=== PATIENT | male | born 1935 | race Caucasian/White ===

== ENCOUNTER → 2017-01-20 | Outpatient (CLI) | payer OTHER, BC ==
[~2017-01-20] MED LIST: AMLO-114 PO; ASCO10003 PO; CALCTAB5 PO; IBUP-1277 PO; METO25TA3 PO; MULT-506 PO
[2017-01-20 18:12] LABS: BLOOD UREA NITROGEN 14 mg/dl (7-18); BUN/CREATININE RATIO 16.2 (10-20); CALCIUM 8.8 mg/dl (8.5-10.1); CARBON DIOXIDE 26 mmol/L (21-32); CHLORIDE 106 mmol/L (98-107); CREATININE 0.89 mg/dl (0.60-1.40); GLUCOSE 90 mg/dl (70-99); POTASSIUM 4.2 mmol/L (3.5-5.1); SODIUM 138 mmol/L (136-145)
[2017-01-20 18:17] LABS: PROSTATE SPECIFIC ANTIGEN < 0.010 ng/ml (0.000-4.000)
== END | disposition home or self-care (01) ==
LOC: C.LABPVFM 09:24
PROVIDERS: ATTEND Family Medicine
DX: I10 Essential (primary) hypertension (principal); C61 Malignant neoplasm of prostate

== ENCOUNTER 2019-02-13 07:06 | Inpatient (IN) ==
--- NOTE | 2019-01-14 15:11 | PAT Medication Instructions ---
Medication Instructions Date of Service January 14, 2019 Home Medications amlodipine 10 mg tablet 10 mg PO QAM metoprolol succinate ER 25 mg tablet,extended release 24 hr 25 mg PO QAM multivitamin 1 tab PO QAM trazodone 50 mg PO HS PRN DO NOT take the morning of surgery multivitamin 1 tab PO QAM Take morning of surgery With a small sip of water, OTHERWISE NOTHING TO EAT OR DRINK AFTER MIDNIGHT: amlodipine 10 mg tablet 10 mg PO QAM metoprolol succinate ER 25 mg tablet,extended release 24 hr 25 mg PO QAM Take evening before surgery trazodone 50 mg PO HS PRN (if needed) Other Notes If you have any questions please call us at [phone] or [phone] or [phone] or [phone]
--- NOTE | 2019-01-15 08:49 | Anesthesiology Consultation ---
Date of Service January 15, 2019 Assessment & Plan Chart Review Chart Review: Acceptable Risk for Surgery and Patient seen in Pre Admission Testing Teaching & Discussion Pre-Anesthesia Teaching/Discussion Notes: Instructed NPO after midnight before surgery,except medications with 15 cc of water. Medication instructions provided according to the PAT guidelines. History Surgery Operation Date: 02/13/19 07:30 Proposed Procedures p Right Reversed Total Shoulder Arthroplasty - Ramon Almeida MD Height/Weight Height: 5 ft 9 in Weight: 90.7 kg Allergies Allergy/AdvReac Type Severity Reaction Status Date / Time aspirin Allergy Intermediate facial Verified 01/15/19 08:53 swelling hydrocodone AdvReac Intermediate hallucinati Verified 01/08/19 13:26 ons Medications Home Medications Medication Instructions Recorded Confirmed Last Taken amlodipine 10 mg tablet 10 mg PO QAM #90 tab 12/11/18 01/08/19 12/16/18 metoprolol succinate ER 25 mg 25 mg PO QAM #90 tab 12/11/18 01/08/19 12/16/18 tablet,extended release 24 hr multivitamin 1 tab PO QAM 12/16/18 01/08/19 12/16/18 trazodone 50 mg PO HS PRN 01/08/19 01/08/19 Unknown cholecalciferol (vitamin D3) 1,000 unit PO DAILY 01/15/19 01/15/19 Unknown [Vitamin D3] Past Medical History Medical History History of prostate cancer Insomnia Hypertension Osteoarthritis Exercise / Class Metabolic Activity II 4-5 Yardwork/Stairs/Walk up hill Past Family History Family History Father Myocardial infarction Past Surgical History Surgical History History of shoulder surgery RT/LEFT History of carpal tunnel surgery Bilateral History of bilateral knee replacement History of cataract surgery RT/LEFT History of colonoscopy History of herniorrhaphy INGUINAL History of toe surgery LEFT FOOT History of tonsillectomy History of tooth extraction Past Anesthesia History No Hx of Anesthesia Complications and No Family Hx of Anesthesia Complications History of PONV No Hx of PONV and No Hx of Motion Sickness Social History Smoking Status: Never smoker Do You Dip or Chew Tobacco: No Hx Alcohol Use: No Hx Substance Use: No substance use type: does not use Review of Systems Patient denies chest pain, shortness of breath, dyspnea on exertion, reflux, cough, wheezing, palpitations. Physical Exam Vital Signs VITALS BP 117/72 P 69 TEMP 98.2 SP02 95%RA RESP 20 PHYSICAL Mildly decreased cervical extension. Full TMJ range of motion. TMD 3 finger breaths Mallampati Score 2 Dentition: poor dentition, partial on upper dentures , crowns on sides/molars Lungs: clear throughout to auscultation Cardiac: regular rate and rhythm, no murmurs noted Spine: normal Carotid arteries: negative bruit Extremities: no edema Testing Laboratory Results 01/15/19 09:02 PT 10.5 Seconds (9.0-12.0) 01/15/19 09:02 INR 1.0 (0.9-1.1) 01/15/19 09:02 APTT 29.7 Seconds (21.0-31.0) 01/15/19 09:02 Hemoglobin A1c 5.6 % (4.5-5.6) 01/15/19 09:02 Urine Color Dark Yellow 01/15/19 09:02 Urine Appearance Clear (Clear) 01/15/19 09:02 Urine pH 5.0 (4.5-7.5) 01/15/19 09:02 Ur Specific [place] 1.025 (1.000-1.030) 01/15/19 09:02 Urine Protein Negative (Negative) 01/15/19 09:02 Urine Glucose (UA) Negative (Negative) 01/15/19 09:02 Urine Ketones Trace (Negative) H 01/15/19 09:02 Urine Nitrite Negative (Negative) 01/15/19 09:02 Ur Leukocyte Esterase Negative (Negative) 01/15/19 09:02 Blood Type O Negative 01/15/19 09:02 Antibody Screen NEGATIVE 01/15/19 09:02 01/01/19 SODIUM 140 POTASSIUM 4.1 CHLORIDE 108 CO2 25 BUN 18 CREATININE 0.79 GLUCOSE 92 Electrocardiogram Date: 01/15/19 SR with PAC's at 66bpm. iRBBB. Chest X-Ray Date: 01/15/19 Atherosclerosis of the aortic arch. Basilar irregular opacities best appreciated on lateral view likely correlate with lower lobe scarring evident on prior CT, right greater than left (report sent to PCP). Prominent nipple shadows noted. No other focal opacity is evident. No pleural effusion or pneumothorax. Degenerative changes of the thoracic spine.
--- NOTE | 2019-01-15 09:28 | XRay Report ---
XR chest Pre-admission PA/Lat CLINICAL HISTORY: 83 years-old Male presenting with preoperative assessment. TECHNIQUE: PA and lateral views of the chest were obtained. COMPARISON: Chest CT from 02/01/2016. FINDINGS: Atherosclerosis of the aortic arch. Cardiac silhouette normal in size. Basilar irregular opacities be st appreciated on lateral view likely correlate with lower lobe scarring evident on prior CT, right g reater than left. Prominent nipple shadows noted. No other focal opacity is evident. No pleural effus ion or pneumothorax. Degenerative changes of the thoracic spine. Upper abdomen normal. IMPRESSION: 1. Bibasilar scarring likely similar to prior chest CT from 2015. Electronically signed by: Hussain Brown M.D. 01/15/2019 9:26 AM
[2019-01-15 10:55] LABS: Appearance Urine Clear (Clear); Basophils # (auto) 0.03 K/uL (0-0.2); Basophils % (auto) 0.5 %; Bilirubin Urine Negative (Negative); Blood Urine Negative (Negative); Color Urine Dark Yellow; Eosinophils % (auto) 3.1 %; Glucose Urine UA Negative (Negative); Hematocrit (blood only) 47.3 % (42-52); Hemoglobin 16.2 g/dL (14.0-18.0); Immature Granulocytes # (auto) 0.01 K/uL (0.00-0.02); Immature Granulocytes % (auto) 0.2 %; Ketones Urine Trace (Negative); Leukocyte Esterase Urine Negative (Negative); Lymphocytes # (auto) 1.15 K/uL (1.2-3.4); Lymphocytes % (auto) 17.9 %; Mean Corpuscular Hemoglobin 32.5 pg (25-34); Mean Corpuscular Hgb Conc 34.2 g/dL (32-36); Mean Platelet Volume 10.3 fL (7.4-10.4); Monocytes # (auto) 0.93 K/uL (0.11-0.59); Monocytes % (auto) 14.5 %; Neutrophils % (auto) 63.8 %; Nitrite Urine Negative (Negative); Platelet Count 267 K/uL (130-400); Protein Urine Negative (Negative); RDW Coefficient of Variation 13.6 % (11.5-14.5); RDW Standard Deviation 46.6 fL (36.4-46.3); Red Blood Count 4.98 M/uL (4.7-6.1); Specific Gravity Urine 1.025 (1.000-1.030); Urobilinogen Urine Negative (Negative); White Blood Count 6.42 K/uL (4.8-10.8)
[2019-01-15 11:06] LABS: Partial Thromboplastin Ratio 1.1; Partial Thromboplastin Time 29.7 Seconds (21.0-31.0); Prothrombin Time 10.5 Seconds (9.0-12.0)
[2019-01-15 11:16] LABS: Estimated Average Glucose 114 mg/dl; Hemoglobin A1C 5.6 % (4.5-5.6)
--- NOTE | 2019-02-12 16:02 | History and Physical Report ---
DATE OF ADMISSION: 02/13/2019 CHIEF COMPLAINT: Chronic right shoulder pain and weakness. HISTORY OF PRESENT ILLNESS: This is an 83-year-old male patient of Dr. Almeida'zoraida complaining of chronic right shoulder pain and weakness. He has had a failed rotator cuff repair in the past. MRI has confirmed chronic rotator cuff tear and arthritis. The patient wished to proceed with a right reversed total shoulder arthroplasty. PAST MEDICAL HISTORY: Hypertension, osteoarthritis, kidney stones, prostate cancer, skin cancer. SOCIAL HISTORY: Nonsmoker, nondrinker. PAST SURGICAL HISTORY: Bilateral total knees, bilateral rotator cuff repairs, bilateral carpal tunnel releases. FAMILY HISTORY: Noncontributory. REVIEW OF SYSTEMS: Chronic right shoulder pain and weakness. Otherwise, denies any shortness of breath, chest pain, nausea, vomiting or any other joint complaints. MEDICATIONS: 1. Toprol 25 mg daily. 2. Amlodipine 1 mg daily. 3. Multivitamin daily. ALLERGIES: VICODIN AND ASPIRIN, VICODIN CAUSES HALLUCINATIONS, ASPIRIN IS FACE SWELLING. PHYSICAL EXAMINATION: GENERAL: Well-developed, well-nourished 83-year-old male, in no acute distress. He is alert and oriented x3 and pleasant. HEENT: Normocephalic, atraumatic. Extraocular motions are intact. Pupils are equal and reactive to light. HEART: Regular rate and rhythm, no murmurs. LUNGS: Clear. ABDOMEN: Soft, nontender, bowel sounds present. EXTREMITIES: Right shoulder active range of motion to 90 degrees, passively to 180 with crepitation and pain. He has 3/5 strength globally. NEUROLOGIC: Neurovascularly he is intact in his right upper extremity. DIAGNOSES: Right shoulder rotator cuff arthropathy, hypertension, osteoarthritis, history of kidney stones, history of prostate cancer and skin cancer. PLAN: The patient was advised of his diagnosis. Indications, risks, benefits, postop course have all been reviewed. The patient wished to proceed with a right reversed total shoulder arthroplasty. Necessary consent forms, preoperative testing and clearances will be obtained.
[~2019-02-13 07:06] MED LIST changes: +ACETAMINOPHEN 500 MG TAB PO SCH; -AMLO-114 PO; -ASCO10003 PO; -CALCTAB5 PO; +CEFAZOLIN 2000MG 2,000 MG/15 ML SYR IV SCH; +CeleBREX 200 MG CAP PO SCH; +FAMOTIDINE 20 MG TAB PO SCH; +GABAPENTIN 300 MG CAP PO SCH; -IBUP-1277 PO; +LR 15ML/HR IV SCH; -METO25TA3 PO; +METOCLOPRAMIDE HCL 10 MG TABLET PO SCH; -MULT-506 PO; +ROPIVACAINE 0.5% 5 MG/ML 30 ML VIAL ONE; +dexAMETHasone 4 MG TAB PO SCH
[2019-02-13] MEDS ORDERED: GLYCOPYRROLATE 0.2 MG/ML VIAL ONE (08:20)
[2019-02-13] MEDS ORDERED: LARYING-O-JET KIT (LTA) ONE (08:20)
[2019-02-13] MEDS ORDERED: ROCURONIUM BROMIDE 10 MG/ML 5 ML VIAL ONE (08:20)
[2019-02-13] MEDS ORDERED: PROPOFOL IV EMULSION 10 MG/ML 20 ML VIAL IV ONE (08:20)
[2019-02-13] MEDS ORDERED: DEXAMETHASONE SOD INJ 4 MG/ML VIAL ONE (08:20)
[2019-02-13] MEDS ORDERED: PHENYLEPHRINE HCL 10 MG/ML VIAL ONE (08:20)
[2019-02-13] MEDS ORDERED: MIDAZOLAM HCL 1 MG/ML 2ML VIAL ONE (08:20)
[2019-02-13] MEDS ORDERED: ONDANSETRON INJ 2 MG/ML 2 ML VIAL ONE (08:20)
[2019-02-13] MEDS ORDERED: PHENYLEPHRINE 100MCG/ML 5ML SYR ONE (08:20)
[2019-02-13] MEDS ORDERED: fentaNYL citrate 100 MCG/2 ML VIAL ONE (08:20)
[2019-02-13] MEDS ORDERED: NEOSTIGMINE METHYLSULFATE 5 MG/5 ML SYR ONE (08:20)
[2019-02-13] MEDS ORDERED: LIDOCAINE HCL 2% 2 ML VIAL/AMP(20MG/ML) INFIL ONE (08:20)
[2019-02-13] MEDS ORDERED: ePHEDrine sulfate 50 MG/ML SYR ONE (08:20)
[2019-02-13] MEDS ORDERED: fentaNYL citrate 100 MCG/2 ML VIAL IV PRN (09:13)
[2019-02-13] MEDS ORDERED: ATROPINE SULFATE 0.1 MG/ML 10ML SYR IV PRN (09:13)
[2019-02-13] MEDS ORDERED: ONDANSETRON INJ 2 MG/ML 2 ML VIAL IV PRN ×2 (09:13→14:37)
[2019-02-13] MEDS ORDERED: ePHEDrine sulfate 50 MG/ML AMP IV PRN (09:13)
--- NOTE | 2019-02-13 09:56 | History & Physical Bridge Note ---
Date of Service February 13, 2019 History & Physical Bridge Note I have examined the patient, reviewed the History & Physical and in the interval since the performance of the History & Physical I have noted the following changes of clinical significance: no changes noted
[2019-02-13] MEDS ORDERED: BACITRACIN INJ 50,000 UNIT VIAL IR ONE (11:48)
--- NOTE | 2019-02-13 13:05 | Post Operative Brief Note ---
Immediate Post Op Note v1 Date of Surgery February 13, 2019 Pre & Post Diagnosis Operation Date: 02/13/19 09:30 Pre-Op Diagnosis: Right Shoulder Rotator Cuff Arthropathy, biceps tendon dislocation into a subscapularis tendon tear Post-Op Diagnosis: Right Shoulder Rotator Cuff Arthropathy, biceps tendon dislocation into the subscapularis tendon tear with biceps tendinopathy degenerative glenoid labrum tearing degenerative arthritis glenohumeral joint rotator cuff tendinopathy marked with chronic rotator cuff tear and tendinopathy partial tearing of the rotator cuff Procedure Operation Date: 02/13/19 09:30 Actual Procedures p Right Reversed Total Shoulder Arthroplasty(Right), biceps tenodesis, rotator cuff debridement- Ramon Almeida MD Surgeon Ramon Almeida MD Assistant Professor Of English Ap CRUZ Estimated Blood Loss 175 Findings Consistent with Post-Op Diagnosis Specimens Humeral head Drains Hemovac Drain Anesthesia Type General Regional Complications none Disposition Accompanied Patient To Recovery: No Disposition: Recovery Room Overlapping Procedure I was immediately available: during the entire case.
--- NOTE | 2019-02-13 14:06 | Anesthesiology Progress Note ---
Date of Service February 13, 2019 Anesthesia Post Procedure Vital Signs Vital Signs: Temp Pulse Pulse Resp BP Pulse Ox 02/13/19 13:55 97.2 F L 77 18 102/68 95 02/13/19 13:45 71 18 98/71 L 95 02/13/19 13:35 74 18 96/60 L 95 02/13/19 13:25 80 18 136/76 95 02/13/19 13:19 97.2 F L 73 18 115/70 95 02/13/19 10:13 64 16 96 02/13/19 10:08 61 16 136/79 96 02/13/19 07:36 98.4 F 70 18 135/81 92 Transfer of Care Handoff Completed per policy Notes Mental Status: alert / awake / arousable and participated in evaluation Patient Amnestic to Procedure: Yes Nausea / Vomiting: adequately controlled Pain: adequately controlled Airway Patency, RR, SpO2: stable & adequate BP & HR: stable & adequate Hydration State: stable & adequate Anesthetic Complications: no major complications apparent and Pt Satisfied with anesthetic care
--- NOTE | 2019-02-13 14:09 | Operative Report ---
Post Operative Report Pre & Post Diagnosis Operation Date: 02/13/19 09:30 Pre-Op Diagnosis: Right Shoulder Rotator Cuff Arthropathy anterior biceps dislocation into a subscapularis tendon tear Post-Op Diagnosis: Right Shoulder Rotator Cuff Arthropathy anterior biceps dislocation into the subscapularis tendon tear glenohumeral osteoarthritis degenerative glenoid labral tear biceps tendinopathy tendinopathy of the rotator cuff including rotator cuff tear Procedure Operation Date: 02/13/19 09:30 Actual Procedures p Right Reversed Total Shoulder Arthroplasty(Right), biceps tenodesis, debridement rotator cuff- Ramon Almeida MD Surgeon Ramon Almeida MD Fire Dispatcher Ap CRUZ Estimated Blood Loss 175 Findings Consistent with Post-Op Diagnosis Specimens Humeral head Drains 2 Hemovac Anesthesia Type General Regional Complications none Disposition Accompanied Patient To Recovery: No Disposition: Recovery Room Indications 80-year-old male with chronic bilateral shoulder pain. He said years of shoulder pain weakness with inability to raise his arm overhead without pain and cannot lift any weight over chest level due to marked weakness. MRI demonstrates chronic rotator cuff tear chronic rotator cuff tendinopathy with dislocated biceps tendon and rotator cuff arthropathy proximal migration of the humerus. Description of Procedure The patient was taken to the operating room and anesthetized under regional block and general anesthetic. The patient was positioned on the operating table in a 30 beachchair position with a towel roll under the medial border of the right scapula. The arm was draped free to be able to manipulate the shoulder as needed. The right upper extremity was prepped and draped in usual sterile fashion. Exam demonstrated glenohumeral crepitation subacromial crepitation external rotation to 30 degrees forward elevation and passively to 150 abduction to 80. An anterior deltopectoral approach was performed. A longitudinal incision was made in the deltopectoral interval. The skin was incised sharply. Subcutaneous flaps were elevated off the fascia. The cephalic vein was dissected out and retracted lateral with the deltoid. The clavipectoral fascia was divided at the lateral margin of the conjoined tendon and extended up to the CA ligament. The following findings were noted there was thickened bursal scar tissue over the subscapularis tendon. There is a split in the subscapularis tendon with dislocation of the biceps tendon into the subscapularis. There is a chronic supraspinatus tendon tear with tendinopathy marked thickened scar tissue and tendinopathy with partial tearing of the infraspinatus. The biceps tendon was very thickened and had marked tendinopathy and was scarred into the subscapularis tendon it is dislocated position. The upper centimeter of the pectoralis was released for inferior exposure. the biceps tendon was tenodesed to the pectoralis tendon with #2 FiberWire. The proximal biceps was resected. The subscapularis tendon was taken down off the lesser tuberosity using a subperiosteal dissection. There are 2 layers of the subscapularis tendon which were preserved for repair at the end of the procedure. A #1 Vicryl traction suture was placed into the free end of the subscapularis tendon and capsule. The subscapular muscle fibers were split longitudinally at the level of the circumflex vessels. The circumflex vessels were identified and tied off with silk ties and divided laterally. A Kitner elevator was used to free up the inferior fibers of the subscapularis off of the capsule. The axillary nerve was identified with a tug test and protected with a blunt Mathew retractor between the nerve and the capsule. The subscapularis tendon was then taken down off of the lesser tuberosity subperiosteally and subperiosteal dissection was performed along the neck of the humerus as the arm is gradually actually rotated exposing the humeral head. Retractors were readjusted and the inferior osteophytes were all resected using an artist chisel. A Berkowitz elevator was used to assist in releasing the capsule of the neck of the humerus. The capsule was divided with Rosen scissors down to the glenoid released off the anterior glenoid and the rotator interval was released to meet the capsular release and a 360 release of the subscapularis was accomplished. A Fukuda retractor was placed into the joint retracting the humeral head posterior. Glenoid findings demonstrated grade 3 glenohumeral osteoarthritis with chronic degenerative labrum and a widened thickened biceps tendon at the superior labral attachment with chronic tendinopathy.. The labrum and biceps tendon was resected. an anterior-inferior and posterior inferior capsular release were performed with electrocautery and a Berkowitz elevator on bone with the axillary nerve protected inferiorly by the retractor. Attention was then taken to the humeral preparation. The cutting guide was placed into the humeral head. It was positioned at 20 of retroversion. Oscillating saw was used to resect the humeral head giving the cut above the level of the posterior rotator cuff insertion site. The humerus was then prepared for the stem. I used the ascend flex stem from [employer]. The sizing broaches were used followed by trial broaches up to a size 6B long which had the appropriate fit and fill. The appropriate sized cut protector was placed. The humerus was then retracted posterior to the glenoid. The glenoid was sized for a 29 baseplate. The guide for the baseplate was positioned in a 10 inferior tilt and the central drill hole was made. The reamer for the 29 aequalis baseplate was used. The central drill was widened for the peg. The 29 aequalis ANDRE-coated baseplate was impacted into position. The base plate was transfixed with superior and inferior locking screws and anterior and posterior compression screws with stable fixation. The fan reamer was used for the 36 millimeter glenoid sphere. After irrigation the 36 standard glenoid sphere was impacted onto the baseplate and the screw was tightened. Attention was taken back to the humerus. The cut protector was removed and the +0 high offset humeral tray trial was assembled to the trial stem rotated appropriately to get bony coverage and then screwed in position. A trial reduction was performed. A 9 mm trial insert demonstrated good stability and no shuck. The trials were removed. 3 drill holes are made into the harder bone in the bicipital groove area and 3 #5 FiberWire sutures were placed transosseously. The canal was irrigated with antibiotic solution with bacitracin. The final component was assembled. The final component was 9 mm polyethylene plus or high offset tray and a ascend flex 6B long stem. This was then impacted into the humerus with a tight press-fit. It was reduced to the glenoid sphere. Stability was verified. I did debride the partial tearing of the subscapularis tendon removed the tendinopathic supraspinatus tendon tissue closed the lateral aspect of rotator interval and subscapularis was repaired with the #5 FiberWire sutures using Eric-Stefan suture technique. Lateral row soft tissue repair was performed with #2 FiberWire [id number] sutures. The pectoralis was repaired with #2 FiberWire [id number] sutures reinforcing th e biceps tendon tenodesis. The arm was taken through a range of motion which demonstrated 130 degrees of flexion 80 degrees abduction and 50 degrees of external rotation without any tension on repair. The implant was stable through the range of motion tested. The wound was copiously irrigated. 2 Hemovac drains were placed. The deltopectoral interval was closed with [id number]-[id number] #1 Vicryl sutures. The subcutaneous tissues were closed with 2-0 Vicryl sutures. The skin was closed with julissa. Sterile dressings were applied and a shoulder immobilizer. Ap CRUZ my physician child care center assistant director assisted in the procedure to the entire procedure including patient positioning arm positioning prepping and draping soft tissue retraction instrument management suture management and performed the subcutaneous and skin closure and will participate in the postoperative care of the patient. I attest to the content of the Intraoperative Record and any orders documented therein. Any exceptions are noted below.
[2019-02-13] MEDS ORDERED: SODIUM CHLORIDE 0.9% 1000ML 1,000 ML IV SCH (14:37)
[2019-02-13] MEDS ORDERED: NALOXONE HCL 0.4 MG/1 ML VIAL/CARP IV PRN (14:37)
[2019-02-13] MEDS ORDERED: HYDROmorphone INJ 0.5 MG/0.5 ML SYR IV PRN (14:37)
[2019-02-13] MEDS ORDERED: MAGNESIUM HYDROXIDE SUSP 30 ML UDC PO PRN (14:37)
[2019-02-13] MEDS ORDERED: BISACODYL 10 MG SUPP PR PRN (14:37)
--- NOTE | 2019-02-13 14:37 | XRay Report ---
RIGHT SHOULDER 2 VIEWS CLINICAL HISTORY: Postoperative examination. FINDINGS: 2 views of the right shoulder are obtained. No prior studies are available for comparison a t the time of dictation. The skeletal structures are osteopenic. A right shoulder arthroplasty is in near anatomic alignment. No fracture is seen. Mild productive degenerative change is noted at the acr omioclavicular joint. There are expected postoperative changes overlying the right shoulder including skin clips, a surgical drain, subcutaneous gas, and soft tissues. The visualized right upper lobe deepika ng parenchyma appears clear. IMPRESSION: Expected postoperative findings status post right shoulder arthroplasty. No fracture is s een. Electronically signed by: Kendrick Baeza M.D. 02/13/2019 2:35 PM
[2019-02-13] MEDS: ACETAMINOPHEN 500 MG TAB PO SCH ×2 (15:05→21:11)
--- NOTE | 2019-02-13 17:34 | Consultation ---
Date of Consultation February 13, 2019 Assessment & Plan (1) Post-operative state: S/P right rotator cuff arthroplasty 02/13 Pain control, dvt prophylaxis per primary Monitor for acute blood loss - CBC am (2) HTN (hypertension): continue metoprolol, amlodipine Thank you for involving us in the care of this patient. Medicine will sign off at this time. Please let us know if we can help in the future Supervising Physician Co-Signing Physician Notes I supervised Jyoti Black NP on this patient's care. I discussed the plan of care with her with the plan being as written in her note except for any following changes/exceptions: None. History of Present Illness Mr. Wiggins is post right rotator cuff arthroplasty. He is doing well, no complaints Pmhx: HTN, prostate CA Social: lives with his , never smoker, no alcohol, retired Family: father of heart attack, mother had atherosclerosis Attending Physician: Ramon Almeida MD Allergies Allergy/AdvReac Type Severity Reaction Status Date / Time aspirin Allergy Intermediate facial Verified 02/13/19 07:28 swelling hydrocodone AdvReac Intermediate hallucinati Verified 02/13/19 07:28 ons Home Medications Home Medications Medication Instructions Recorded Confirmed Type amlodipine 10 mg tablet 10 mg PO QAM #90 tab 12/11/18 02/13/19 History metoprolol succinate ER 25 mg 25 mg PO QAM #90 tab 12/11/18 02/13/19 History tablet,extended release 24 hr multivitamin 1 tab PO QAM 12/16/18 02/13/19 History cholecalciferol (vitamin D3) 1,000 unit PO DAILY 01/15/19 02/13/19 History [Vitamin D3] hydroxyzine HCl 25 mg tablet 25 mg PO .HS PRN #30 tab 01/18/19 02/13/19 Rx Patient History Family History Father Myocardial infarction Social History Preferred Language: Japanese Communication Ability: Effective 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 Required: No Beliefs That Will Affect Care: None Current Living Situation: Spouse Other Information That Helps Us Care for You: No Feels Safe at Home: Yes Safety Concerns: Feels Safe At This Time Smoking Status: Never smoker Do You Dip or Chew Tobacco: No ; Second Hand Exposure: No ; Tobacco Cessation Education Requested by Patient: No Hx Alcohol Use: No Hx Substance Use: No Review of Systems Review of Systems: All systems reviewed & are unremarkable except as noted in HPI & below Physical Exam Physical Exam: General: no distress Eyes: normal inspection, PERLL Respiratory: chest non tender, clear to auscultation, normal breath sounds, no respiratory distress, no accessory muscle use Cardiac: regular rate and rhythm, no rub or gallop, no murmur, no edema, no jvd GI/: active bowel sounds, no abd pain or tenderness, soft, non distended Extremities: normal range of motion, normal strength, non tender Neuro:oriented x 3, moves all extremities Psych: alert, normal mood and affect Skin: normal color, dry, right fingers warm and pink Results & Data Vital Signs (Past 12 Hours) Vital Signs Temp Pulse Pulse Resp BP Pulse Ox 02/13/19 16:31 36.5 C 72 17 100/68 93 02/13/19 15:32 36.9 C 68 17 107/65 92 02/13/19 15:00 36.7 C 71 17 104/63 90 02/13/19 14:30 36.4 C L 63 19 101/61 94 02/13/19 14:05 36.2 C L 70 18 100/67 94 02/13/19 13:55 36.2 C L 77 18 102/68 95 02/13/19 13:45 71 18 98/71 L 95 02/13/19 13:35 74 18 96/60 L 95 02/13/19 13:25 80 18 136/76 95 02/13/19 13:19 36.2 C L 73 18 115/70 95 02/13/19 10:13 64 16 96 02/13/19 10:08 61 16 136/79 96 02/13/19 07:36 36.9 C 70 18 135/81 92 PG Care Time/CCT Total # of Minutes Spent Total Time Spent with Patient: Total time spent is greater than 50% in coordination of care (as documented) at patient's floor/unit and/or counseling patient:
[2019-02-13] MEDS ORDERED: COUGH DROP (SUGAR FREE) LOZ 24 LOZ/1 BOX BUCCAL PRN (18:50)
[2019-02-13] MEDS: CEFAZOLIN 2000MG 2,000 MG/15 ML SYR IV SCH (19:07)
[2019-02-13] MEDS: DOCUSATE SODIUM 100 MG CAP PO SCH (21:10)
[2019-02-13] MEDS: SENNA 8.6 MG TAB PO SCH (21:10)
[2019-02-14] MEDS: CEFAZOLIN 2000MG 2,000 MG/15 ML SYR IV SCH (02:22)
[2019-02-14] MEDS: OXYCODONE HCL IR 5 MG TAB (IMMEDIATE RELEASE) PO PRN ×4 (04:06→17:14)
[2019-02-14] MEDS: ACETAMINOPHEN 500 MG TAB PO SCH ×3 (05:51→22:08)
[2019-02-14 07:32] LABS: Hematocrit (blood only) 41.6 % (42-52); Hemoglobin 14.3 g/dL (14.0-18.0); Immature Granulocytes # (auto) 0.03 K/uL (0.00-0.02); Immature Granulocytes % (auto) 0.2 %; Lymphocytes # (auto) 1.09 K/uL (1.2-3.4); Lymphocytes % (auto) 8.2 %; Mean Corpuscular Hemoglobin 31.7 pg (25-34); Mean Corpuscular Hgb Conc 34.4 g/dL (32-36); Mean Corpuscular Volume 92.2 fL (80-100); Mean Platelet Volume 9.7 fL (7.4-10.4); Monocytes # (auto) 1.07 K/uL (0.11-0.59); Neutrophils # (auto) 11.13 K/uL (1.4-6.5); Neutrophils % (auto) 83.6 %; Platelet Count 216 K/uL (130-400); RDW Coefficient of Variation 13.6 % (11.5-14.5); RDW Standard Deviation 45.7 fL (36.4-46.3); Red Blood Count 4.51 M/uL (4.7-6.1); White Blood Count 13.32 K/uL (4.8-10.8)
[2019-02-14 08:07] LABS: BUN Creatinine Ratio 21.9 (10-20); Calcium 8.6 mg/dl (8.5-10.1); Creatinine Clr Calc Pharmacy 62.2 ml/min; Est GFR (African American) 80.3; Est GFR (Non-African American) 69.3; Potassium 4.5 mmol/L (3.5-5.1)
[2019-02-14] MEDS: METOPROLOL SUCC 25MG EXT REL TAB PO SCH (08:51)
[2019-02-14] MEDS: CHOLECALCIFEROL 1,000 UNITS TAB PO SCH (08:51)
[2019-02-14] MEDS: DOCUSATE SODIUM 100 MG CAP PO SCH ×2 (08:51→22:08)
[2019-02-14] MEDS: MULTIVITAMIN TAB PO SCH (08:52)
[2019-02-14] MEDS: AMLODIPINE BESYLATE 5 MG TAB PO SCH (08:52)
[2019-02-14] MEDS ORDERED: MULTIVITAMIN TAB PO SCH (09:00)
[2019-02-14] MEDS: SENNA 8.6 MG TAB PO SCH (22:08)
[2019-02-15] MEDS: OXYCODONE HCL IR 5 MG TAB (IMMEDIATE RELEASE) PO PRN ×2 (01:27→06:02)
[2019-02-15] MEDS: ACETAMINOPHEN 500 MG TAB PO SCH (06:02)
[2019-02-15 06:20] VITALS: BP 102/69; TEMP 98.8; O2SAT 90
[2019-02-15 07:12] LABS: Basophils # (auto) 0.01 K/uL (0-0.2); Basophils % (auto) 0.1 %; Eosinophils # (auto) 0.02 K/uL (0-0.5); Eosinophils % (auto) 0.2 %; Hematocrit (blood only) 39.9 % (42-52); Hemoglobin 13.4 g/dL (14.0-18.0); Immature Granulocytes # (auto) 0.05 K/uL (0.00-0.02); Immature Granulocytes % (auto) 0.4 %; Lymphocytes # (auto) 1.33 K/uL (1.2-3.4); Lymphocytes % (auto) 11.7 %; Mean Corpuscular Hemoglobin 31.5 pg (25-34); Mean Corpuscular Hgb Conc 33.6 g/dL (32-36); Mean Corpuscular Volume 93.9 fL (80-100); Mean Platelet Volume 9.8 fL (7.4-10.4); Monocytes # (auto) 1.28 K/uL (0.11-0.59); Monocytes % (auto) 11.3 %; Neutrophils # (auto) 8.65 K/uL (1.4-6.5); Neutrophils % (auto) 76.3 %; Platelet Count 180 K/uL (130-400); RDW Coefficient of Variation 14.1 % (11.5-14.5); RDW Standard Deviation 48.1 fL (36.4-46.3); Red Blood Count 4.25 M/uL (4.7-6.1); White Blood Count 11.34 K/uL (4.8-10.8)
[2019-02-15 07:48] LABS: Calcium 7.9 mg/dl (8.5-10.1); Creatinine Clr Calc Pharmacy 69.1 ml/min; Est GFR (African American) 91.2; Est GFR (Non-African American) 78.7
--- NOTE | 2019-02-15 08:13 | Orthopedic Progress Note ---
Date of Service February 15, 2019 Assessment & Plan (1) Rotator cuff arthropathy of right shoulder: POD #2, Right Reversed TSA, Biceps Tenodesis. HEP, No formal PT D/C planning- HOme today. Subjective POD #2 Doing well. Denies SOB, CP, N/V. Pain controlled well. Physical Exam Physical Exam: Right shoulder dressings c/d/i Sling in tact. Fingers mobile A&Ox3. Results & Data Vital Signs (Past 12 Hours) Vital Signs Temp Pulse Pulse Resp BP Pulse Ox 02/15/19 06:19 37.1 C 87 20 102/69 90 02/14/19 23:40 37.2 C 85 17 137/74 91
[2019-02-15] MEDS: MULTIVITAMIN TAB PO SCH (08:18)
[2019-02-15] MEDS: AMLODIPINE BESYLATE 5 MG TAB PO SCH (08:18)
[2019-02-15] MEDS: METOPROLOL SUCC 25MG EXT REL TAB PO SCH (08:18)
[2019-02-15] MEDS: DOCUSATE SODIUM 100 MG CAP PO SCH (08:18)
[2019-02-15] MEDS: CHOLECALCIFEROL 1,000 UNITS TAB PO SCH (08:18)
[2019-02-15 08:55] VITALS: PULSE 85
--- NOTE | 2019-02-27 09:01 | Discharge Summary ---
HISTORY OF PRESENT ILLNESS: This is an 83-year-old male patient of Dr. Almeida's complaining of chronic right shoulder pain and weakness. He failed conservative treatment including a rotator cuff repair in the past. MRI has confirmed a chronic rotator cuff arthropathy and tear and the patient wishes to proceed with a right reversed total shoulder arthroplasty. PAST MEDICAL HISTORY: Hypertension, osteoarthritis, kidney stones, prostate cancer and skin cancer. POSTOPERATIVE COURSE: The patient underwent a right reverse total shoulder arthroplasty, biceps tenodesis and rotator cuff debridement on 02/13/2019. He was followed closely with medical consultation, limited physical therapy and pain control. The patient did very well postoperatively and was discharged home on postoperative day number 2. PHYSICAL EXAMINATION: On discharge, right shoulder incision was clean, dry and intact. Paige are intact. Skin edges were approximated well. There was no redness or drainage. Fingers were mobile. Sling was intact. Neurologically and neurovascularly he was intact in his right upper extremity. DIAGNOSES: Status post right reverse total shoulder arthroplasty, biceps tenodesis, rotator cuff repair with a history of hypertension, osteoarthritis, kidney stones, prostate cancer and skin cancer. PLAN: The patient was discharged home with home exercises only. He will continue his preadmission medications with the addition of pain medications. The patient will follow up with Dr. Almeida as scheduled as an outpatient.
== END 2019-02-15 09:30 | disposition home or self-care (01) | DRG 483 ==
LOC: ASU 07:06 → 3E 13:25

== ENCOUNTER 2020-09-09 05:01 | Inpatient (IN) ==
--- NOTE | 2020-08-27 15:11 | PAT Medication Instructions ---
Medication Instructions Date of Service August 27, 2020 Home Medications Medication Instructions Recorded amlodipine 10 mg tablet 10 mg PO QAM #90 tab 09/17/19 lorazepam 0.5 mg tablet See Rx Instructions PO .COMPLEX 01/06/20 PRN #120 tab doxycycline hyclate 100 mg tablet 100 mg PO BID #28 tab 04/03/20 metoprolol succinate 25 mg 25 mg PO QAM #90 tab 08/06/20 tablet,extended release 24 hr eszopiclone 1 mg tablet See Rx Instructions .ROUTE 08/24/20 .COMPLEX #180 tab multivitamin 1 tab PO QAM cholecalciferol (vitamin D3) [Vitamin D3] 1,000 unit PO DAILY amlodipine 10 mg tablet 10 mg PO QAM lorazepam 0.5 mg tablet See Rx Instructions PO .COMPLEX PRN doxycycline hyclate 100 mg tablet 100 mg PO BID metoprolol succinate 25 mg tablet,extended release 24 hr 25 mg PO QAM eszopiclone 1 mg tablet See Rx Instructions .ROUTE .COMPLEX DO NOT take the morning of surgery multivitamin 1 tab PO QAM cholecalciferol (vitamin D3) [Vitamin D3] 1,000 unit PO DAILY doxycycline hyclate 100 mg tablet 100 mg PO BID Take morning of surgery With a small sip of water, OTHERWISE NOTHING TO EAT OR DRINK AFTER MIDNIGHT: amlodipine 10 mg tablet 10 mg PO QAM metoprolol succinate 25 mg tablet,extended release 24 hr 25 mg PO QAM Take evening before surgery lorazepam 0.5 mg tablet See Rx Instructions PO .COMPLEX PRN (if needed) doxycycline hyclate 100 mg tablet 100 mg PO BID eszopiclone 1 mg tablet See Rx Instructions .ROUTE .COMPLEX Other Notes If you have any questions please call us at [phone] or [phone] or [phone] or [phone]
--- NOTE | 2020-08-31 11:47 | Anesthesiology Consultation ---
Date of Service August 31, 2020 Assessment & Plan (1) Pre-op evaluation: COVID Status: As of 08/31 assessment, patient denies travel to endemic area, known exposure/sick contacts, or symptoms of COVID19. Patient instructed that they and their household members must follow strict social distancing guidelines, wear a mask in public and avoid travel/events/gatherings for 14 days prior to surgery. Preoperative COVID19 testing to be completed prior to surgery per surgeon's arrangements. Patient made aware to self-isolate as much as possible between COVID testing and surgery. He has been attending christianity in- person, only about 8 people but he reports no one wears a mask. He was in structed to NOT attend christianity on 09/06, as his COVID test is scheduled for 09/04. He reports he is fully vaccinated. Chart Review Chart Review: Acceptable Risk for Surgery and Patient seen in Pre Admission Testing Teaching & Discussion Instructed NPO after midnight before surgery, except medications with 15 cc of water. Medication instructions provided according to the PAT guidelines. History Surgery Operation Date: 09/09/20 12:55 Proposed Procedures p Left Total Shoulder Arthroplasty Reverse(Left) - Ramon Almeida MD Height/Weight Height: 5 ft 8.5 in Weight: 90.9 kg Allergies Allergy/AdvReac Type Severity Reaction Status Date / Time aspirin Allergy Intermediate facial Verified 08/28/20 09:05 swelling hydrocodone AdvReac Intermediate hallucinati Verified 08/28/20 09:05 ons Medications Home Medications Medication Instructions Recorded Confirmed Last Taken multivitamin 1 tab PO QAM 12/16/18 08/28/20 02/12/19 07:00 cholecalciferol (vitamin D3) 1,000 unit PO QAM 01/15/19 08/28/20 02/12/19 07:00 [Vitamin D3] amlodipine 10 mg tablet 10 mg PO QAM #90 tab 09/17/19 08/28/20 Unknown metoprolol succinate 25 mg 25 mg PO QAM #90 tab 08/06/20 08/28/20 Unknown tablet,extended release 24 hr diphenhydramine HCl 25 mg PO DAILY PRN 08/28/20 08/28/20 Unknown eszopiclone 1 mg PO HS PRN 08/28/20 08/28/20 Unknown Past Medical History Medical History History of prostate cancer dx 18 years ago; h/o radioactive seed implants Hypertension Insomnia Osteoarthritis Exercise / Class Metabolic Activity II 4-5 Yardwork/Stairs/Walk up hill (Denies CP or SOB with 1 FOS) Past Family History Family History Father Hearing loss Myocardial infarction Other No family history of adverse response to anesthesia No family history of bleeding disorder Denies family history of Ovarian cancer Prostate cancer Breast cancer Colorectal cancer Past Surgical History Surgical History History of bilateral knee replacement History of carpal tunnel surgery Bilateral History of cataract surgery RT/LEFT History of colonoscopy History of herniorrhaphy INGUINAL History of shoulder surgery RT/LEFT History of toe surgery LEFT FOOT History of tonsillectomy History of tooth extraction Status post reverse total arthroplasty of right shoulder Biceps tenodesis, debridement of rotator cuff- 02/13/[address] Almeida Past Anesthesia History No Hx of Anesthesia Complications and No Family Hx of Anesthesia Complications History of PONV No Hx of PONV and No Hx of Motion Sickness Social History Smoking Status: Never smoker Do You Dip or Chew Tobacco: No Hx Alcohol Use: No Hx Substance Use: No substance use type: does not use Review of Systems Pt denies any recent chest pain, shortness of breath, palpitations, cough, fever, URI, or uncontrolled acid reflux. Physical Exam Vital Signs BP: 109/72 P: 70bpm SPO2: 96% RA T: 98.1 F R: 18 ENMT Mouth: + dentures (upper partial) and + dental restorations (few crowns); no chipped teeth and no loose teeth Thyromental Distance: < 3.5 Finger Breadths (3) Mallampati Class: II Neck normal visual inspection and + limited neck extension Respiratory normal respiratory effort, lungs clear to auscultation Cardiovascular RRR, no murmur, no edema Vessels: no carotid bruit Testing Laboratory Results 08/31/20 11:50 PT 10.3 Seconds (9.0-12.0) 08/31/20 11:50 INR 1.0 (0.9-1.1) 08/31/20 11:50 APTT 28.4 Seconds (21.0-31.0) 08/31/20 11:50 Hemoglobin A1c 5.4 % (4.5-5.6) 08/31/20 11:50 Urine Color Dark Yellow 08/31/20 11:50 Urine Appearance Clear (Clear) 08/31/20 11:50 Urine pH 5.0 (4.5-7.5) 08/31/20 11:50 Ur Specific [place]yl[place] 1.026 (1.000-1.030) 08/31/20 11:50 Urine Protein Negative (Negative) 08/31/20 11:50 Urine Glucose (UA) Negative (Negative) 08/31/20 11:50 Urine Ketones Trace (Negative) H 08/31/20 11:50 Urine Nitrite Negative (Negative) 08/31/20 11:50 Ur Leukocyte Esterase Negative (Negative) 08/31/20 11:50 Blood Type O Negative 08/31/20 11:50 Antibody Screen NEGATIVE 08/31/20 11:50 07/22/20 SODIUM: 144 POTASSIUM: 4.1 CHLORIDE: 112 CO2: 26 BUN: 17 CREATININE: 0.92 GLUCOSE: 98 Electrocardiogram Date: 08/31/20 Findings: + NSR @ (65bpm) Chest X-Ray Date: 08/31/20 Mild basilar atelectatic changes. No acute findings.
--- NOTE | 2020-08-31 12:52 | XRay Report ---
XR chest Pre-admission PA/Lat CLINICAL HISTORY: Preoperative chest COMPARISON STUDY: 01/15/2019 FINDINGS: The heart is normal in size. There is aortic tortuosity. There are mild basilar atelectatic changes. There is no failure. There is no lobar consolidation. There are postsurgical changes of a r everse total right shoulder arthroplasty.[ IMPRESSION: 1. Mild basilar atelectatic changes. No acute findings. ACT 112: Negative or not required by law. Electronically signed by: River Rubalcava M.D. 08/31/2020 12:50 PM
[2020-08-31 13:00] LABS: Basophils # (auto) 0.04 K/uL (0-0.2); Basophils % (auto) 0.6 %; Eosinophils # (auto) 0.21 K/uL (0-0.5); Eosinophils % (auto) 3.3 %; Hematocrit (blood only) 48.4 % (42-52); Hemoglobin 16.4 g/dL (14.0-18.0); Immature Granulocytes # (auto) 0.01 K/uL (0.00-0.02); Immature Granulocytes % (auto) 0.2 %; Lymphocytes # (auto) 1.59 K/uL (1.2-3.4); Lymphocytes % (auto) 25.1 %; Mean Corpuscular Hemoglobin 31.9 pg (25-34); Mean Corpuscular Hgb Conc 33.9 g/dL (32-36); Mean Corpuscular Volume 94.2 fL (80-100); Mean Platelet Volume 10.1 fL (7.4-10.4); Monocytes # (auto) 0.89 K/uL (0.11-0.59); Neutrophils % (auto) 56.8 %; Platelet Count 245 K/uL (130-400); RDW Coefficient of Variation 13.4 % (11.5-14.5); RDW Standard Deviation 46.3 fL (36.4-46.3); Red Blood Count 5.14 M/uL (4.7-6.1); White Blood Count 6.34 K/uL (4.8-10.8)
[2020-08-31 13:01] LABS: Appearance Urine Clear (Clear); Bilirubin Urine Negative (Negative); Blood Urine Negative (Negative); Color Urine Dark Yellow; Glucose Urine UA Negative (Negative); Ketones Urine Trace (Negative); Leukocyte Esterase Urine Negative (Negative); Nitrite Urine Negative (Negative); Protein Urine Negative (Negative); Specific Gravity Urine 1.026 (1.000-1.030); Urobilinogen Urine Negative (Negative)
[2020-08-31 13:14] LABS: Estimated Average Glucose 108 mg/dl; Hemoglobin A1C 5.4 % (4.5-5.6); Partial Thromboplastin Ratio 1.1; Partial Thromboplastin Time 28.4 Seconds (21.0-31.0); Prothrombin Time 10.3 Seconds (9.0-12.0)
--- NOTE | 2020-08-31 16:18 | Electrocardiogram Report ---
Test Reason : Blood Pressure : / mmHG Vent. Rate : 065 BPM Atrial Rate : 065 BPM P-R Int : 196 ms QRS Dur : 110 ms QT Int : 434 ms P-R-T Axes : 061 048 052 degrees QTc Int : 451 ms Normal sinus rhythm Normal ECG When compared with ECG of 15-JAN-2019 09:07, Premature atrial complexes are no longer Present Confirmed by Armond Garcia ([id number]) on 08/31/2020 4:18:20 PM Referred By: Ramon Almeida Confirmed By:Ilia Garcia
--- NOTE | 2020-09-06 21:14 | History & Physical Report ---
Date of Service September 06, 2020 Assessment & Plan (1) Rotator cuff arthropathy of left shoulder: Treatment options discussed with patient. He has endstage arthritis left shoulder with a massive retracted rotator cuff tear. He has failed conservative measures. Risks, benefits and alternatives to surgery including but not limited to infection, DVT, pain, stiffness, need for revision surgery, damage to blood vessels, damage to nerves, PE, , were discussed with the patient and they wish to proceed. Plan for left reverse total shoulder arthroplasty at [facility] on 09/09/[address] Almeida. All questions answered. He will follow up post operatively. (2) Primary osteoarthritis, left shoulder: History of Present Illness Chief Complaint: Left shoulder pain Primary Care Provider: Leidy Castro MD 85 year old male with PMHx significant for HTN and prostate Ca who presents with ongoing left shoulder pain. He has failed s\conservative measures including cortisone injections. Pain is interfering with his ability to carry out daily activities. He would like to proceed with left shoulder replacement. Patient denies headaches, sweats, fevers, chills, double vision, blurred vision, cough, sore throat, dysphagia, chest pain, sob, wheezing, n/v/d/c, numbness, tingling, fatigue, urinary symptoms, mood disorders. ROS positive for left shoulder pain and stiffness. Allergies Allergy/AdvReac Type Severity Reaction Status Date / Time aspirin Allergy Intermediate facial Verified 09/01/20 14:01 swelling hydrocodone AdvReac Intermediate hallucinati Verified 09/01/20 14:01 ons Home Medications Medication Instructions Recorded Confirmed Type multivitamin 1 tab PO QAM 12/16/18 09/01/20 History cholecalciferol (vitamin D3) 1,000 unit PO QAM 01/15/19 09/01/20 History [Vitamin D3] amlodipine 10 mg tablet 10 mg PO QAM #90 tab 09/17/19 09/01/20 Rx metoprolol succinate 25 mg 25 mg PO QAM #90 tab 08/06/20 09/01/20 Rx tablet,extended release 24 hr diphenhydramine HCl 25 mg PO DAILY PRN 08/28/20 09/01/20 History eszopiclone 1 mg PO HS PRN 08/28/20 09/01/20 History Past Med/Surg History Medical History History of prostate cancer Hypertension Insomnia Osteoarthritis Surgical History History of bilateral knee replacement History of carpal tunnel surgery History of cataract surgery History of colonoscopy History of herniorrhaphy History of shoulder surgery History of toe surgery History of tonsillectomy History of tooth extraction Status post reverse total arthroplasty of right shoulder Family History Father Hearing loss Myocardial infarction Other No family history of adverse response to anesthesia No family history of bleeding disorder Denies family history of Ovarian cancer Prostate cancer Breast cancer Colorectal cancer Social History (Updated 09/01/20 @ 14:07 by Heidy Anderson LPN) Smoking Status: Never smoker Second Hand Exposure: Yes (as a child); Do You Dip or Chew Tobacco: No; Hx Alcohol Use: No Hx Substance Use: No Preferred Language: Ukrainian Communication Ability: Effective Visual Impairment: No Limitations Hearing Ability: Normal Windows Administrator Required: No Beliefs That Will Affect Care: None marital status: Current Living Situation: Spouse current occupational status: retired Feels Safe at Home: Yes Childhood Exposure to Second-Hand Smoke: Yes caffeine: Yes Dental Care, Regularly: Yes Physical Activity Frequency: Daily Seatbelt Use: always Sunscreen Use: No Assistive Devices: Cane and Denture - Upper Review of Systems All systems reviewed & are unremarkable except as noted in HPI & below Physical Exam Constitutional: well developed and well nourished; no acute distress Eyes: PERRL, conjunctivae normal, anicteric sclerae ENMT: external ear and nose normal, oropharynx normal Neck: trachea midline, no thyromegaly Respiratory: normal respiratory effort, lungs clear to auscultation Cardiovascular: RRR, no murmur, no edema Musculoskeletal: Left shoulder: Tenderness anterolateral acromion. Positive impingement signs. Active and passive ROM painful. Crepitus with ROM. FF to 120 degrees, abduction to 90 degrees. ER to 60 degrees. Strength 4-/5 ER, 5/5 IR, 3+/5 abduction. Skin: no rashes, warm and dry Neurologic: patellar DTR's 2+ bilat, sensation intact Psychiatric: A+Ox3, euthymic affect Results & Data ([facility]) Laboratory Results Lab Results 08/31/20 08/31/20 08/31/20 Range/Units 11:50 11:50 11:50 WBC 6.34 (4.8-10.8) K/uL RBC 5.14 (4.7-6.1) M/uL Hgb 16.4 (14.0-18.0) g/dL Hct 48.4 (42-52) % MCV 94.2 (80-100) fL MCH 31.9 (25-34) pg MCHC 33.9 (32-36) g/dL RDW Std Deviation 46.3 (36.4-46.3) fL RDW Coeff of Jerson 13.4 (11.5-14.5) % Plt Count 245 (130-400) K/uL MPV 10.1 (7.4-10.4) fL Immature Gran % (Auto) 0.2 % Neut % (Auto) 56.8 % Lymph % (Auto) 25.1 % Marin % (Auto) 14.0 % Eos % (Auto) 3.3 % Baso % (Auto) 0.6 % Neut # (Auto) 3.60 (1.4-6.5) K/uL Lymph # (Auto) 1.59 (1.2-3.4) K/uL Marin # (Auto) 0.89 H (0.11-0.59) K/uL Eos # (Auto) 0.21 (0-0.5) K/uL Baso # (Auto) 0.04 (0-0.2) K/uL Immature Gran # (Auto) 0.01 (0.00-0.02) K/uL PT 10.3 (9.0-12.0) Seconds INR 1.0 (0.9-1.1) APTT 28.4 (21.0-31.0) Seconds PTT Ratio 1.1 Estimat Average Glucose mg/dl Hemoglobin A1c (4.5-5.6) % Urine Color Urine Appearance (Clear) Urine pH (4.5-7.5) Ur Specific [place] (1.000-1.030) Urine Protein (Negative) Urine Glucose (UA) (Negative) Urine Ketones (Negative) Urine Blood (Negative) Urine Nitrite (Negative) Urine Bilirubin (Negative) Urine Urobilinogen (Negative) Ur Leukocyte Esterase (Negative) Blood Type O Negative Antibody Screen NEGATIVE 08/31/20 08/31/20 Range/Units 11:50 11:50 WBC (4.8-10.8) K/uL RBC (4.7-6.1) M/uL Hgb (14.0-18.0) g/dL Hct (42-52) % MCV (80-100) fL MCH (25-34) pg MCHC (32-36) g/dL RDW Std Deviation (36.4-46.3) fL RDW Coeff of Jerson (11.5-14.5) % Plt Count (130-400) K/uL MPV (7.4-10.4) fL Immature Gran % (Auto) % Neut % (Auto) % Lymph % (Auto) % [place] % (Auto) % Eos % (Auto) % Baso % (Auto) % Neut # (Auto) (1.4-6.5) K/uL Lymph # (Auto) (1.2-3.4) K/uL Marin # (Auto) (0.11-0.59) K/uL Eos # (Auto) (0-0.5) K/uL Baso # (Auto) (0-0.2) K/uL Immature Gran # (Auto) (0.00-0.02) K/uL PT (9.0-12.0) Seconds INR (0.9-1.1) APTT (21.0-31.0) Seconds PTT Ratio Estimat Average Glucose 108 mg/dl Hemoglobin A1c 5.4 (4.5-5.6) % Urine Color Dark Yellow Urine Appearance Clear (Clear) Urine pH 5.0 (4.5-7.5) Ur Specific [place] 1.026 (1.000-1.030) Urine Protein Negative (Negative) Urine Glucose (UA) Negative (Negative) Urine Ketones Trace H (Negative) Urine Blood Negative (Negative) Urine Nitrite Negative (Negative) Urine Bilirubin Negative (Negative) Urine Urobilinogen Negative (Negative) Ur Leukocyte Esterase Negative (Negative) Blood Type Antibody Screen Diagnostic Findings Left shoulder: Four-view x-rays left shoulder demonstrate grade 4 glenohumeral osteoarthritis on axillary view, subchondral cysts in the area of the inferior glenoid. There is an inferior humeral osteophyte. There is some proximal migration of the numerus consistent with rotator cuff insufficiency. There is moderate AC joint osteoarthritis. Completely bone on bone on axillary view with central wear on the glenohumeral joint.
[2020-09-09] MEDS ORDERED: ACETAMINOPHEN 500 MG TAB PO SCH (06:00)
[2020-09-09] MEDS ORDERED: CeleBREX 200 MG CAP PO SCH (06:00)
[2020-09-09] MEDS ORDERED: METOCLOPRAMIDE HCL 10 MG TABLET PO SCH (06:00)
[2020-09-09] MEDS ORDERED: LR 15ML/HR IV SCH (06:00)
[2020-09-09] MEDS ORDERED: dexAMETHasone 4 MG TAB PO SCH (06:00)
[2020-09-09] MEDS ORDERED: FAMOTIDINE 20 MG TAB PO SCH (06:00)
[2020-09-09] MEDS ORDERED: ceFAZolin 2000MG 2,000 MG/15 ML SYR IV SCH (06:00)
[2020-09-09] MEDS ORDERED: GABAPENTIN 300 MG CAP PO SCH (06:00)
[2020-09-09] MEDS ORDERED: BUPIVACAINE 0.5 % 5 MG/1 ML PF 10ML VIAL ONE (06:27)
[2020-09-09] MEDS ORDERED: PROPOFOL IV EMULSION 10 MG/ML 20 ML VIAL IV ONE (06:41)
[2020-09-09] MEDS ORDERED: LIDOCAINE HCL 2% 2 ML VIAL/AMP(20MG/ML) INFIL ONE (06:41)
[2020-09-09] MEDS ORDERED: fentaNYL citrate 100 MCG/2 ML VIAL ONE (06:42)
[2020-09-09] MEDS ORDERED: MIDAZOLAM HCL 1 MG/ML 2ML VIAL ONE ×2 (06:42)
[2020-09-09] MEDS ORDERED: BACITRACIN INJ 50,000 UNIT VIAL ONE (06:51)
[2020-09-09] MEDS ORDERED: ATROPINE SULFATE 0.1 MG/ML 10ML SYR IV PRN (06:59)
[2020-09-09] MEDS ORDERED: fentaNYL citrate 100 MCG/2 ML VIAL IV PRN (06:59)
[2020-09-09] MEDS ORDERED: ePHEDrine sulfate 50 MG/ML AMP IV PRN (06:59)
[2020-09-09] MEDS ORDERED: ONDANSETRON INJ 2 MG/ML 2 ML VIAL IV PRN ×2 (06:59→11:35)
--- NOTE | 2020-09-09 07:10 | History & Physical Bridge Note ---
Date of Service September 09, 2020 History & Physical Bridge Note I have examined the patient, reviewed the History & Physical and in the interval since the performance of the History & Physical I have noted the following changes of clinical significance: no changes noted
[2020-09-09] MEDS ORDERED: GLYCOPYRROLATE 0.2 MG/ML VIAL ONE (08:44)
[2020-09-09] MEDS ORDERED: NEOSTIGMINE METHYLSULFATE 5 MG/5 ML SYR ONE (08:44)
[2020-09-09] MEDS ORDERED: ONDANSETRON INJ 2 MG/ML 2 ML VIAL ONE (08:44)
[2020-09-09] MEDS ORDERED: ROCURONIUM BROMIDE 10 MG/ML 5 ML VIAL IV ONE (08:44)
--- NOTE | 2020-09-09 10:17 | Post Operative Brief Note ---
Immediate Post Op Note v1 Date of Surgery September 09, 2020 Pre & Post Diagnosis Operation Date: 09/09/20 07:00 Pre-Op Diagnosis: Osteoarthritis, rotator cuff arthropathy left Shoulder Post-Op Diagnosis: Osteoarthritis, rotator cuff arthropathy left Shoulder I identified the patient and participated in the time-out.: Yes Procedure Operation Date: 09/09/20 07:00 Actual Procedures p Left Total Shoulder Arthroplasty Reverse(Left) - Ramon Almeida MD Surgeon Ramon Almeida MD Marine Structural Designer Karlos CRUZ Estimated Blood Loss 125 Findings Consistent with Post-Op Diagnosis Specimens Humeral head Drains Hemovac Drain Anesthesia Type General Regional Complications none Disposition Accompanied Patient To Recovery: No Disposition: Recovery Room Overlapping Procedure I was immediately available: during the entire case.
[2020-09-09] MEDS ORDERED: ESMOLOL HCL INJ 10 MG/ML 10ML VIAL IV ONE (10:25)
--- NOTE | 2020-09-09 10:34 | Operative Report ---
Post Operative Report Pre & Post Diagnosis Operation Date: 09/09/20 07:00 Pre-Op Diagnosis: Osteoarthritis rotator cuff arthropathy left Shoulder Post-Op Diagnosis: Osteoarthritis rotator cuff arthropathy left Shoulder I identified the patient and participated in the time-out.: Yes Procedure Operation Date: 09/09/20 07:00 Actual Procedures Left reverse total Shoulder Arthroplasty , biceps tenodesis (Left) - Ramon Almeida MD Surgeon Ramon Almeida MD Label Folder Karlos CRUZ Estimated Blood Loss 125 Findings Consistent with Post-Op Diagnosis Specimens Humeral head cut Drains Two Hemovac Anesthesia Type General Regional Complications none Disposition Accompanied Patient To Recovery: No Disposition: Recovery Room Indications 85-year-old male with chronic progressive shoulder pain left shoulder. Patient had rotator cuff repair performed via open procedure years ago and gradual rotator cuff tendinopathy with proximal migration humerus and advanced glenohumeral DJD with shoulder weakness and dysfunction. Patient had successful reverse shoulder placement right shoulder. Description of Procedure The patient was taken to the operating room and anesthetized under regional block and general anesthetic. The patient was positioned on the operating table in a 30 beachchair position with a towel roll under the medial border of the left scapula. The arm was draped free to be able to manipulate the shoulder as needed. The left upper extremity was prepped and draped in usual sterile fashi on. Exam demonstrated 120 degrees of forward flexion, 70 degrees abduction, 30 degrees external rotation. [id number] crepitation.. An anterior deltopectoral approach was performed. A longitudinal incision was made in the deltopectoral interval. The skin was incised sharply. Subcutaneous flaps were elevated off the fascia. The cephalic vein was dissected out and retracted lateral with the deltoid. The clavipectoral fascia was divided at the lateral margin of the conjoined tendon and extended up to the CA ligament. The following findings were noted: The subscapularis tendon was intact. There was thin scarred superior rotator cuff tissue. Biceps tendon was scarred down in the bicipital groove area.. The upper centimeter of the pectoralis was released for inferior exposure. The biceps tendon findings demonstrated chronic biceps tendinopathy which had ruptured proximally or had previous procedure proximally. There was chronic thickened tenosynovitis around the biceps. This scarred tenosynovial tissue was resected. the biceps tendon was tenodesed to the pectoralis tendon with #2 FiberWire. The proximal biceps was resected. The subscapularis tendon was taken down off the lesser tuberosity using a subperiosteal dissection. A #1 Vicryl traction suture was placed into the free end of the subscapularis tendon and capsule. The subscapular muscle fibers were split longitudinally at the level of the circumflex vessels. The circumflex vessels were identified and tied off with silk ties and divided laterally. A Kitner elevator was used to free up the inferior fibers of the subscapularis off of the capsule. The axillary nerve was identified with a tug test and protected with a blunt Mathew retractor between the nerve and the capsule. The subscapularis tendon was then taken down off of the lesser tuberosity subperiosteally and subperiosteal dissection was performed along the neck of the humerus as the arm is gradually externally rotated exposing the humeral head. The humeral head findings demonstrated grade 4 DJD large peripheral osteophytes with a large humeral head.. retractors were readjusted and the inferior osteophytes were all resected using an artist chisel. A Berkowitz elevator was used to assist in releasing the capsule of the neck of the humerus. The capsule was divided with Rosen scissors down to the glenoid released off the anterior glenoid and the rotator interval was released to meet the capsular release and a 360 release of the subscapularis was accomplished. A Fukuda retractor was placed into the joint retracting the humeral head posterior. Glenoid findings demonstrated eburnated bone on the glenoid with posterior superior wear pattern 75% of the glenoid was exposed eburnated bone.. The labrum and biceps tendon was resected. an ant erior-inferior and posterior inferior capsular release were performed with electrocautery and a Berkowitz elevator on bone with the axillary nerve protected inferiorly by the retractor. Attention was then taken to the humeral preparation. The cutting guide was placed into the humeral head. It was positioned at 20 of retroversion. Oscillating saw was used to resect the humeral head giving the cut above the level of the posterior rotator cuff insertion site. The humerus was then prepared for the stem. I used the ascend flex stem from [employer]. The sizing broaches were used followed by trial br oaches up to a size 6B which had the appropriate fit and fill. The appropriate sized cut protector was placed. The humerus was then retracted posterior to the glenoid. The glenoid was sized for a 42 glenoid sphere. The guide for the 29 baseplate was positioned in a 10 inferior tilt and the central drill hole was made. The reamer for the 29 baseplate was used. The central drill was widened for the peg. The aequalis hydroxyapatite-coated size 29 standard post baseplate was impacted into position. The base plate was transfixed with superior and inferior locking screws and anterior and posterior compression screws with stable fixation. The fan reamer was used for the 42 millimeter glenoid sphere. After irrigation the 42 glenoid sphere was impacted onto the baseplate and the screw was tightened. Attention was taken back to the humerus. The cut protector was removed and the plus or high offset humeral tray trial was assembled to the trial stem rotated appropriately to get bony coverage and then screwed in position. A trial reduction was performed. A 9 x 42 trial insert demonstrated good stability and no shuck. The trials were removed. 3 drill holes are made into the harder bone in the bicipital groove area and 3 #5 FiberWire sutures were placed transosseously. The canal was irrigated with antibiotic solution with bacitracin. The final component was assembled. The final component was 6B long stem assembled to high offset +0 tray and the 9 x 42 polyethylene reversed insert. This was then impacted into the humerus with a tight press-fit. It was reduced to the glenoid sphere. Stability was verified. Subscapularis was repaired with the #5 FiberWire sutures using Eric-Stefan suture technique. Lateral row soft tissue repair was performed with #2 FiberWire [id number] sutures. The pectoralis was repaired with #2 FiberWire [id number]-[id number] sutures reinforcing the biceps tendon tenodesis. The arm was taken through a range of motion which demonstrated 140 forward flexion 90 degrees abduction 45 degrees external rotation. The implant was stable through the range of motion tested. The wound was copiously irrigated. 2 Hemovac drains were placed. The deltopectoral interval was closed with [id number] #1 Vicryl sutures. The subcutaneous tissues were closed with 2- 0 Vicryl sutures. The skin was closed with julissa. Sterile dressings were a pplied and a shoulder immobilizer. Karlos CRUZ my physician shipping assistant assisted in the procedure to the entire procedure including patient positioning arm positioning prepping and draping soft tissue retraction instrument management suture management and performed the subcutaneous and skin closure and will participate in the postoperative care of the patient. I attest to the content of the Intraoperative Record and any orders documented therein. Any exceptions are noted below.
--- NOTE | 2020-09-09 10:41 | XRay Report ---
XR shoulder LT min 2V routine CLINICAL HISTORY: Post shoulder surgery COMPARISON STUDY: None. FINDINGS: Status post reverse left total shoulder arthroplasty. The hardware appears intact. Skin sta ples and surgical drains are in place. No fracture or dislocation. Trace left pleural effusion. The h eart appears enlarged. IMPRESSION: Status post reverse left total shoulder arthroplasty. No evidence for hardware complicat ion. ACT 112: Negative or not required by law. Electronically signed by: Daniele Calle M.D. 09/09/2020 10:40 AM
--- NOTE | 2020-09-09 11:00 | Anesthesiology Progress Note ---
Date of Service September 09, 2020 Anesthesia Post Procedure Vital Signs Vital Signs: Temp Pulse Pulse Resp BP Pulse Ox 09/09/20 10:50 80 18 103/80 94 09/09/20 10:40 76 18 104/68 94 09/09/20 10:30 80 22 107/73 94 09/09/20 10:20 75 20 112/70 93 09/09/20 10:19 36.1 C L 79 16 113/72 92 09/09/20 05:30 36.1 C L 77 20 127/85 92 Transfer of Care Handoff Completed per policy Notes Mental Status: alert / awake / arousable and participated in evaluation Patient Amnestic to Procedure: Yes Nausea / Vomiting: adequately controlled Pain: adequately controlled Airway Patency, RR, SpO2: stable & adequate BP & HR: stable & adequate Hydration State: stable & adequate Anesthetic Complications: no major complications apparent and Pt Satisfied with anesthetic care Notes: Block is functioning well. Oxygen levels prior to the start of anesthesia were 88% on room air. Oxygen post surgery was 92-94% on 4 LPM NC. Pt denies subjective SOB. Pt given IS to increase oxygenation and ok to discharge to the floor for slow wean of oxygen.
[2020-09-09] MEDS ORDERED: NALOXONE HCL 0.4 MG/1 ML VIAL/CARP IV PRN (11:35)
[2020-09-09] MEDS ORDERED: HYDROmorphone INJ 0.5 MG/0.5 ML SYR IV PRN (11:35)
[2020-09-09] MEDS ORDERED: diphenhydrAMINE Capsule 25 MG CAP PO PRN (11:35)
[2020-09-09] MEDS ORDERED: METOCLOPRAMIDE HCL INJ 5 MG/ML 2 ML VIAL IV PRN (11:35)
[2020-09-09] MEDS ORDERED: TAMSULOSIN HCL 0.4 MG CAP PO PRN (11:35)
[2020-09-09] MEDS ORDERED: oxyCODONE HCL IR 5 MG TAB (IMMEDIATE RELEASE) PO PRN (11:35)
[2020-09-09] MEDS ORDERED: ESZOPICLONE 1 MG TAB PO PRN (11:35)
[2020-09-09] MEDS: SODIUM CHLORIDE 0.9% 1000ML 1,000 ML IV SCH ×2 (11:35→16:09)
[2020-09-09] MEDS ORDERED: bisacodyL 10 MG SUPP PR PRN (11:35)
[2020-09-09] MEDS ORDERED: MAGNESIUM HYDROXIDE SUSP 30 ML UDC PO PRN (11:35)
--- NOTE | 2020-09-09 12:41 | Hospitalist Consultation ---
Date of Consultation September 09, 2020 Assessment & Plan (1) Primary osteoarthritis, left shoulder: POD #0 total left shoulder arthroplasty Postprocedural x-ray shows no evidence of hardware complication Continue with ice and pain management per orthopedics Further management per orthopedics (2) HTN (hypertension): Longstanding benign hypertension Continue home dose of metoprolol succinate 25 mg daily and amlodipine 10 mg p.o. daily Vital signs per protocol No chest pain or tightness reported (3) Diverticulosis of colon: No abdominal pain No nausea or vomiting Peripheral care and monitoring (4) Prostate cancer: Diagnosed and treated 18 years ago No recurrent disease the patient is aware of Further management as an outpatient (5) Insomnia: Chronic problem Continue home medications (6) Vitamin D deficiency: Continue cholecalciferol 1 g daily Outpatient management (7) DVT prophylaxis: Continue SCDs and NATASHA hose Chemical prophylaxis per orthopedics Thank you for including us in the care of this patient. Please refer to Dr. Dowling's addendum for further corrections and additions. At this time the patient appears to be stable from a comorbidity standpoint. Continue home medications for hypertension. We will sign off at this time. Please feel free to reconsult as needed. Supervising Physician Co-Signing Physician Notes I personally saw and examined the patient. I verified all kumar points and agree with NANCY Coles with the following exceptions and/or additions: None History of Present Illness Attending Physician: Ramon Almeida MD History of Present Illness Attending: Dr. Dowling Patient is a pleasant 85 yo male with a PMH including Hx prostate CA, HTN, Insomnia, Osteoarthitis. Patient previously had rotator cuff injury with repair. Over the last several months, the pain has been worsening. Patient also recently was moving a snowblower and when he lifted with his left arm felt something tear. He was seen in the outpatient office and it was determined that he would need a total shoulder arthroplasty. He is POD #[address] Zapata. Patient states he has no pain in his shoulder or his arm. He does describe numbness from his shoulder down to his fingertips. Radial pulse and ulnar pulse are palpable and bounding. Patient has adequate capillary refill of all 5 of his left digits. Ice is currently in place and dressing is dry and intact. Patient also has a drain in place. Patient denies any fever or chills. He has no nausea or vomiting. He did well with lunch. He has no other acute complaints. Patient has never been a smoker and has never used smokeless tobacco. He has never had any alcohol. 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 Patient is and lives at home with his of 46 years. Allergies Allergy/AdvReac Type Severity Reaction Status Date / Time aspirin Allergy Intermediate facial Verified 09/09/20 05:28 swelling hydrocodone AdvReac Intermediate hallucinati Verified 09/09/20 05:28 ons Home Medications Medication Instructions Recorded Confirmed Type multivitamin 1 tab PO QAM 12/16/18 09/09/20 History cholecalciferol (vitamin D3) 1,000 unit PO QAM 01/15/19 09/09/20 History [Vitamin D3] amlodipine 10 mg tablet 10 mg PO QAM #90 tab 09/17/19 09/09/20 Rx metoprolol succinate 25 mg 25 mg PO QAM #90 tab 08/06/20 09/09/20 Rx tablet,extended release 24 hr diphenhydramine HCl 25 mg PO DAILY PRN 08/28/20 09/09/20 History eszopiclone 1 mg PO HS PRN 08/28/20 09/09/20 History Patient History Medical History (Updated 09/09/20 @ 13:10 by Kendrick Coles PA-C) History of prostate cancer dx 18 years ago; h/o radioactive seed implants Hypertension Insomnia Osteoarthritis Vitamin D deficiency Surgical History History of bilateral knee replacement History of carpal tunnel surgery Bilateral History of cataract surgery RT/LEFT History of colonoscopy History of herniorrhaphy INGUINAL History of shoulder surgery RT/LEFT History of toe surgery LEFT FOOT History of tonsillectomy History of tooth extraction Status post reverse total arthroplasty of right shoulder Biceps tenodesis, debridement of rotator cuff- 02/13/[address] Almeida Family History Father Hearing loss Myocardial infarction Other No family history of adverse response to anesthesia No family history of bleeding disorder Denies family history of Ovarian cancer Prostate cancer Breast cancer Colorectal cancer Social History Smoking Status: Never smoker Second Hand Exposure: Yes (as a child); Do You Dip or Chew Tobacco: No; Hx Alcohol Use: No Hx Substance Use: No Preferred Language: Ukrainian Communication Ability: Effective Visual Impairment: No Limitations Hearing Ability: Normal Welding Process Specialist Required: No Beliefs That Will Affect Care: None marital status: Current Living Situation: Spouse current occupational status: retired Feels Safe at Home: Yes Childhood Exposure to Second-Hand Smoke: Yes caffeine: Yes Dental Care, Regularly: Yes Physical Activity Frequency: Daily Seatbelt Use: always Sunscreen Use: No Assistive Devices: Denture - Upper Assistive Devices Comment: cane as needed Review of Systems Review of Systems: All systems reviewed & are unremarkable except as noted in HPI & below Physical Exam Physical Exam: GENERAL : No acute distress EYES: No icterus, gaze conjugate NOSE: No evidence of epistaxis MOUTH: No lesions or candidiasis NECK: Supple LUNGS: CTA B/L, no wheezes, rales or rhonchi HEART: Regular, rate controlled. No murmurs gallops or rubs ABDOMEN: Soft, NT, ND, BS Present EXTREMITIES: No LE edema, pedal pulses intact and equal bilaterally. Left upper extremity is in sling with an ice pack in place. Radial and ulnar pulses are palpable without difficulty. Capillary refill of the left fingers is less than 2 seconds. Patient describes numbness of the left upper extremity. He cannot feel me pinching his skin but he can feel me grab his hand and his arm. He has no sensation of pain in the left arm. Patient is also unable to move left arm without assistance from the right arm at this time. NEURO: A&OX3 Results & Data Results & Data ([facility]) Vital Signs (Past 12 Hours) Vital Signs Temp Pulse Pulse Resp BP Pulse Ox 09/09/20 12:12 90 18 122/80 91 09/09/20 11:50 81 18 108/68 91 09/09/20 11:20 36.5 C 78 18 101/65 92 09/09/20 11:10 78 16 107/70 93 09/09/20 11:00 36.3 C L 78 20 109/69 93 09/09/20 10:50 80 18 103/80 94 09/09/20 10:40 76 18 104/68 94 09/09/20 10:30 80 22 107/73 94 09/09/20 10:20 75 20 112/70 93 09/09/20 10:19 36.1 C L 79 16 113/72 92 09/09/20 05:30 36.1 C L 77 20 127/85 92 Laboratory Results 08/31/20 11:50 Diagnostic Findings XR shoulder LT min 2V routine CLINICAL HISTORY: Post shoulder surgery COMPARISON STUDY: None. FINDINGS: Status post reverse left total shoulder arthroplasty. The hardware appears intact. Skin julissa and surgical drains are in place. No fracture or dislocation. Trace left pleural effusion. The heart appears enlarged. IMPRESSION: Status post reverse left total shoulder arthroplasty. No evidence for hardware complication. Electronically signed by: Daniele Calle M.D. 09/09/2020 10:40 AM PG Care Time/CCT Total # of Minutes Spent Total Time Spent with Patient: Total time spent is greater than 50% in coordination of care (as documented) at patient's floor/unit and/or counseling patient: Coding Level of Care Code 12814 Inpt Consult Level 3 Diagnoses Primary osteoarthritis, left shoulder M19.012 HTN (hypertension) I10 Diverticulosis of colon K57.30 Prostate cancer C61 Insomnia G47.00 Vitamin D deficiency E55.9 DVT prophylaxis Z29.9 Time Spent (min) 35
[2020-09-09] MEDS: ACETAMINOPHEN 500 MG TAB PO SCH ×2 (15:47→21:53)
[2020-09-09] MEDS: ceFAZolin 2000MG 2,000 MG/15 ML SYR IV SCH ×2 (15:48→23:16)
[2020-09-09] MEDS ORDERED: SENNA 8.6 MG TAB PO SCH (21:00)
[2020-09-09] MEDS: DOCUSATE SODIUM 100 MG CAP PO SCH (21:03)
[2020-09-10] MEDS: ACETAMINOPHEN 500 MG TAB PO SCH (06:00)
--- NOTE | 2020-09-10 07:31 | Orthopedic Progress Note ---
Date of Service September 10, 2020 Assessment & Plan (1) Primary osteoarthritis, left shoulder: POD#1 left reverse TSA -PT/OT-no shoulder motion. May do elbow/wrist/hand, shrugs, pendulums -DVT prophylaxis-SCDs -Pain management as ordered. Block still in effect -AM labs pending -D/C planning-plan to discharge later today as long as does fine with PT and labs are okay. Admission and Anticipated Discharge Date Admission Date: September 09, 2020 Subjective Patient is POD#1 left reverse TSA. Doing well, block still in effect. Denies chest pain, sob, dizziness, headache, fever, chills. Review of Systems Constitutional: as per Subjective / HPI Physical Exam Physical Exam: Dressing is c/d/i, sling in place. Fingers are mobile but with decreased motion and sensation, unable to extend wrist. Likely due to block. Constitutional: well developed and well nourished; no acute distress Results & Data ([facility]) Vital Signs (Past 12 Hours) Vital Signs Temp Pulse Resp BP Pulse Ox 09/10/20 04:00 36.9 C 81 14 118/71 92 09/09/20 23:26 37.1 C 84 14 123/68 93 09/09/20 19:50 37.1 C 85 14 108/67 92
[2020-09-10 07:36] LABS: Basophils # (auto) 0.01 K/uL (0-0.2); Basophils % (auto) 0.1 %; Eosinophils # (auto) 0.01 K/uL (0-0.5); Eosinophils % (auto) 0.1 %; Hematocrit (blood only) 39.5 % (42-52); Hemoglobin 13.4 g/dL (14.0-18.0); Immature Granulocytes # (auto) 0.01 K/uL (0.00-0.02); Immature Granulocytes % (auto) 0.1 %; Lymphocytes # (auto) 1.56 K/uL (1.2-3.4); Lymphocytes % (auto) 14.8 %; Mean Corpuscular Hemoglobin 31.8 pg (25-34); Mean Corpuscular Hgb Conc 33.9 g/dL (32-36); Mean Corpuscular Volume 93.8 fL (80-100); Mean Platelet Volume 10.1 fL (7.4-10.4); Monocytes # (auto) 1.16 K/uL (0.11-0.59); Neutrophils # (auto) 7.79 K/uL (1.4-6.5); Neutrophils % (auto) 73.9 %; Platelet Count 218 K/uL (130-400); Red Blood Count 4.21 M/uL (4.7-6.1); White Blood Count 10.54 K/uL (4.8-10.8)
[2020-09-10 08:00] LABS: BUN Creatinine Ratio 25.2 (10-20); Calcium 8.2 mg/dl (8.5-10.1); Creatinine Clr Calc Pharmacy 69.4 ml/min; Est GFR (African American) 91.6; Est GFR (Non-African American) 79.1; Potassium 3.9 mmol/L (3.5-5.1)
[2020-09-10] MEDS: DOCUSATE SODIUM 100 MG CAP PO SCH (08:56)
[2020-09-10] MEDS ORDERED: CHOLECALCIFEROL 1,000 UNITS 25 MCG TAB PO SCH (09:00)
[2020-09-10] MEDS ORDERED: METOPROLOL SUCC 25MG EXT REL TAB PO SCH (09:00)
[2020-09-10] MEDS ORDERED: amLODIPine BESYLATE 5 MG TAB PO SCH (09:00)
[2020-09-10] MEDS ORDERED: MULTIVITAMIN TAB PO SCH ×2 (09:00)
--- NOTE | 2020-09-11 20:53 | Discharge Summary ---
Date of Service September 11, 2020 Admission HPI Per Admitting Provider 85 year old male with PMHx significant for HTN and prostate Ca who presents with ongoing left shoulder pain. He has failed s\conservative measures including cortisone injections. Pain is interfering with his ability to carry out daily activities. He would like to proceed with left shoulder replacement. Patient denies headaches, sweats, fevers, chills, double vision, blurred vision, cough, sore throat, dysphagia, chest pain, sob, wheezing, n/v/d/c, numbness, tingling, fatigue, urinary symptoms, mood disorders. ROS positive for left shoulder pain and stiffness. Admission Exam Per Admitting Provider Constitutional: well developed and well nourished; no acute distress Eyes: PERRL, conjunctivae normal, anicteric sclerae ENMT: external ear and nose normal, oropharynx normal Neck: trachea midline, no thyromegaly Respiratory: normal respiratory effort, lungs clear to auscultation Cardiovascular: RRR, no murmur, no edema Musculoskeletal: Dressing is c/d/i, sling in place. Fingers are mobile but with decreased motion and sensation, unable to extend wrist. Likely due to block. Skin: no rashes, warm and dry Neurologic: patellar DTR's 2+ bilat, sensation intact Psychiatric: A+Ox3, euthymic affect Principal Diagnosis Left shoulder osteoarthritis Discharge Exam Constitutional well developed and well nourished; no acute distress Eyes PERRL, conjunctivae normal, anicteric sclerae ENMT external ear and nose normal, oropharynx normal Neck trachea midline, no thyromegaly Respiratory normal respiratory effort, lungs clear to auscultation Cardiovascular RRR, no murmur, no edema Skin no rashes, warm and dry Neurologic patellar DTR's 2+ bilat, sensation intact Psychiatric A+Ox3, euthymic affect Discharge Data Allergies Allergy/AdvReac Type Severity Reaction Status Date / Time aspirin Allergy Intermediate facial Verified 09/09/20 05:28 swelling hydrocodone AdvReac Intermediate hallucinati Verified 09/09/20 05:28 ons Consultations 09/04/20 16:02 Consult Hospitalist Routine Procedures Performed Operation Date: 09/09/20 07:00 Actual Procedures p Left Total Shoulder Arthroplasty Reverse(Left) - Ramon Almeida MD Ordered Studies 09/09/20 05:00 US - OR guided needle placemen Routine Hospital Course (1) Primary osteoarthritis, left shoulder: Patient presented for same day admission following left reverse total shoulder arthroplasty on 09/09/20. He tolerated procedure well. The Patient had a n uneventful hospital course. Post-operatively, his activity was progressed and well tolerated. They participated in PT without comlication. Labs remained stable- lowest hemoglobin recorded: 13.4. [facility] hospital[place] service was consulted for medical management during admission. Pain controlled on oral medications. Please refer to daily progress notes and PT notes for complete details. After exam on 09/10/20, patient was felt to be stable for discharge home. Patient will f/u in the office in about 2 weeks for further evaluation including x-rays and incision check, sooner if having any issues or concerns. POD#1 left reverse TSA -PT/OT-no shoulder motion. May do elbow/wrist/hand, shrugs, pendulums -DVT prophylaxis-SCDs -Pain management as ordered. Block still in effect -AM labs pending -D/C planning-plan to discharge later today as long as does fine with PT and labs are okay. Lab Results 08/31/20 08/31/20 08/31/20 Range/Units 11:50 11:50 11:50 WBC 6.34 (4.8-10.8) K/uL RBC 5.14 (4.7-6.1) M/uL Hgb 16.4 (14.0-18.0) g/dL Hct 48.4 (42-52) % MCV 94.2 (80-100) fL MCH 31.9 (25-34) pg MCHC 33.9 (32-36) g/dL RDW Std Deviation 46.3 (36.4-46.3) fL RDW Coeff of Jerson 13.4 (11.5-14.5) % Plt Count 245 (130-400) K/uL MPV 10.1 (7.4-10.4) fL Immature Gran % (Auto) 0.2 % Neut % (Auto) 56.8 % Lymph % (Auto) 25.1 % Amelia % (Auto) 14.0 % Eos % (Auto) 3.3 % Baso % (Auto) 0.6 % Neut # (Auto) 3.60 (1.4-6.5) K/uL Lymph # (Auto) 1.59 (1.2-3.4) K/uL Amelia # (Auto) 0.89 H (0.11-0.59) K/uL Eos # (Auto) 0.21 (0-0.5) K/uL Baso # (Auto) 0.04 (0-0.2) K/uL Immature Gran # (Auto) 0.01 (0.00-0.02) K/uL PT 10.3 (9.0-12.0) Seconds INR 1.0 (0.9-1.1) APTT 28.4 (21.0-31.0) Seconds PTT Ratio 1.1 Sodium (136-145) mmol/L Potassium (3.5-5.1) mmol/L Chloride (98-107) mmol/L Carbon Dioxide (21-32) mmol/L Anion Gap (3-11) BUN (7-18) mg/dl Creatinine (0.6-1.4) mg/dl Est Cr Clr Drug Dosing ml/min Est GFR ( Amer) Est GFR (Non-Af Amer) BUN/Creatinine Ratio (10-20) Glucose (70-99) mg/dl Estimat Average Glucose mg/dl Hemoglobin A1c (4.5-5.6) % Calcium (8.5-10.1) mg/dl Urine Color Urine Appearance (Clear) Urine pH (4.5-7.5) Ur Specific Boyce (1.000-1.030) Urine Protein (Negative) Urine Glucose (UA) (Negative) Urine Ketones (Negative) Urine Blood (Negative) Urine Nitrite (Negative) Urine Bilirubin (Negative) Urine Urobilinogen (Negative) Ur Leukocyte Esterase (Negative) Blood Type O Negative Antibody Screen NEGATIVE 08/31/20 08/31/20 09/10/20 Range/Units 11:50 11:50 06:14 WBC 10.54 (4.8-10.8) K/uL RBC 4.21 L (4.7-6.1) M/uL Hgb 13.4 L (14.0-18.0) g/dL Hct 39.5 L (42-52) % MCV 93.8 (80-100) fL MCH 31.8 (25-34) pg MCHC 33.9 (32-36) g/dL RDW Std Deviation 48.0 H (36.4-46.3) fL RDW Coeff of Jerson 14.0 (11.5-14.5) % Plt Count 218 (130-400) K/uL MPV 10.1 (7.4-10.4) fL Immature Gran % (Auto) 0.1 % Neut % (Auto) 73.9 % Lymph % (Auto) 14.8 % Amelia % (Auto) 11.0 % Eos % (Auto) 0.1 % Baso % (Auto) 0.1 % Neut # (Auto) 7.79 H (1.4-6.5) K/uL Lymph # (Auto) 1.56 (1.2-3.4) K/uL Amelia # (Auto) 1.16 H (0.11-0.59) K/uL Eos # (Auto) 0.01 (0-0.5) K/uL Baso # (Auto) 0.01 (0-0.2) K/uL Immature Gran # (Auto) 0.01 (0.00-0.02) K/uL PT (9.0-12.0) Seconds INR (0.9-1.1) APTT (21.0-31.0) Seconds PTT Ratio Sodium (136-145) mmol/L Potassium (3.5-5.1) mmol/L Chloride (98-107) mmol/L Carbon Dioxide (21-32) mmol/L Anion Gap (3-11) BUN (7-18) mg/dl Creatinine (0.6-1.4) mg/dl Est Cr Clr Drug Dosing ml/min Est GFR ( Amer) Est GFR (Non-Af Amer) BUN/Creatinine Ratio (10-20) Glucose (70-99) mg/dl Estimat Average Glucose 108 mg/dl Hemoglobin A1c 5.4 (4.5-5.6) % Calcium (8.5-10.1) mg/dl Urine Color Dark Yellow Urine Appearance Clear (Clear) Urine pH 5.0 (4.5-7.5) Ur Specific Boyce 1.026 (1.000-1.030) Urine Protein Negative (Negative) Urine Glucose (UA) Negative (Negative) Urine Ketones Trace H (Negative) Urine Blood Negative (Negative) Urine Nitrite Negative (Negative) Urine Bilirubin Negative (Negative) Urine Urobilinogen Negative (Negative) Ur Leukocyte Esterase Negative (Negative) Blood Type Antibody Screen 09/10/20 Range/Units 06:14 WBC (4.8-10.8) K/uL RBC (4.7-6.1) M/uL Hgb (14.0-18.0) g/dL Hct (42-52) % MCV (80-100) fL MCH (25-34) pg MCHC (32-36) g/dL RDW Std Deviation (36.4-46.3) fL RDW Coeff of Jerson (11.5-14.5) % Plt Count (130-400) K/uL MPV (7.4-10.4) fL Immature Gran % (Auto) % Neut % (Auto) % Lymph % (Auto) % Amelia % (Auto) % Eos % (Auto) % Baso % (Auto) % Neut # (Auto) (1.4-6.5) K/uL Lymph # (Auto) (1.2-3.4) K/uL Amelia # (Auto) (0.11-0.59) K/uL Eos # (Auto) (0-0.5) K/uL Baso # (Auto) (0-0.2) K/uL Immature Gran # (Auto) (0.00-0.02) K/uL PT (9.0-12.0) Seconds INR (0.9-1.1) APTT (21.0-31.0) Seconds PTT Ratio Sodium 140 (136-145) mmol/L Potassium 3.9 (3.5-5.1) mmol/L Chloride 111 H (98-107) mmol/L Carbon Dioxide 26 (21-32) mmol/L Anion Gap 3.0 (3-11) BUN 22 H (7-18) mg/dl Creatinine 0.86 (0.6-1.4) mg/dl Est Cr Clr Drug Dosing 69.4 ml/min Est GFR ( Amer) 91.6 Est GFR (Non-Af Amer) 79.1 BUN/Creatinine Ratio 25.2 H (10-20) Glucose 103 H (70-99) mg/dl Estimat Average Glucose mg/dl Hemoglobin A1c (4.5-5.6) % Calcium 8.2 L (8.5-10.1) mg/dl Urine Color Urine Appearance (Clear) Urine pH (4.5-7.5) Ur Specific Boyce (1.000-1.030) Urine Protein (Negative) Urine Glucose (UA) (Negative) Urine Ketones (Negative) Urine Blood (Negative) Urine Nitrite (Negative) Urine Bilirubin (Negative) Urine Urobilinogen (Negative) Ur Leukocyte Esterase (Negative) Blood Type Antibody Screen Total Time Total Time Spent Total Time Spent (In Minutes): 20 Discharge Plan Discharge Items Patient Disposition: Home - Self-Care Reason For Visit: Osteoarthritis Left Shoulder Discharge Diagnosis: Left shoulder osteoarthritis Activity: Per Instructions section Non-emergency contact: Surgeon Call non-emergency contact if: you have any medication questions, your pain is not controlled, your pain is worsening, your pain is concerning for you, you have a fever, your temperature is above 101, your wound has increased redness and your wound has increased drainage Follow-up/Referrals: Leidy Castro MD [Primary Care Provider] - Diet: Regular Addtl Attending Provider Instructions: ACTIVITY RECOMMENDATIONS: SELF CARE INSTRUCTIONS AFTER TOTAL SHOULDER ARTHROPLASTY REVERSE A. You may do daily exercises as taught in physical therapy while in hospital. No lifting with the operative arm. B. You are to wear your sling/immobilizer at all times EXCEPT when performing your daily exercises and for hygiene purposes. C. You may perform dry, daily dressing changes. Please keep your incision covered. You may shower 48 hours after surgery. Do not apply soap or any ointment/lotions directly over incision. Do not soak incision in bath tub/swimming pool. D. You may use ice as needed to operative shoulder. SPECIAL CARE INSTRUCTIONS: VERY IMPORTANT TO READ AND REVIEW A. There are a few signs you need to watch for after you are home. Call [facility] at [phone] if you experience any of the followin. Increased severe shoulder pain. Some pain is expected especially when you exercise. 2. Increased swelling in you shoulder or arm; pain or swelling in either upper extremity. 3. Any fluid drainage from the incision. 4. Shortness of breath or chest pain. B. Please call [facility] at [phone] if you have any questions or concerns about your operation or recovery. C. Call your physician if: 1. Temperature is greater than 101 degrees (F). 2. Pain is not relieved by prescribed pain medications. 3. Increase drainage or redness from incision. 4. Unanswered questions or concerns. FOLLOW UP VISIT: Please call [facility] [place] at [phone] to schedule a follow up appointment with Dr. Almeida or his PA in 12-14 days from your surgery date. Stand-Alone Forms: My [facility], Opioid Pain Management, Smoking Cessation Medications and DC Order Prescriptions: New acetaminophen 500 mg Tablet 1,000 mg PO Q8 Qty: 60 RF: 0 oxycodone 5 mg Tablet 5 - 10 mg PO .Q4h-6h MDD 6 PRN (Reason: pain) Qty: 30 RF: 0 Continued amlodipine 10 mg tablet 10 mg PO QAM Qty: 90 RF: 3 metoprolol succinate 25 mg tablet extended release 24 hr 25 mg PO QAM Qty: 90 RF: 3 cholecalciferol (vitamin D3) [Vitamin D3] 1,000 unit Capsule 1,000 unit PO QAM RF: 0 multivitamin Tablet 1 tab PO QAM RF: 0 diphenhydramine HCl 25 mg Capsule 25 mg PO DAILY PRN (Reason: Allergy Symptoms) RF: 0 eszopiclone 1 mg tablet 1 mg PO HS PRN (Reason: Insomnia) RF: 0 Discharge Orders: Discharge Order (Routine); Ordered 09/10/20 Ordered By: Abner Bah Admission Data Admit Date/Time: 09/09/20 15:28 Attending Provider: Ramon Almeida Admit Provider: Ramon Almeida Primary Care Provider: Leidy Castro Other Providers: Warren Alvarado Other Interventions: Discharge Summary Assessment (RN) Last Done: 09/10/20 10:42
== END 2020-09-10 12:15 | disposition home or self-care (01) | DRG 483 ==
LOC: 3E 05:01 → ASU 05:01

== ENCOUNTER 2022-08-09 12:14 | Observation (INO) ==
--- NOTE | 2022-08-09 13:25 | Emergency Department Note ---
Impression & Plan CVA (cerebrovascular accident), Dizziness ED Provider Note NAME: MAGDIEL ROWLEY AGE: 87 SEX: M : 1935 ARRIVES VIA: Walk-In INFORMANT: Patient ED PROVIDER(S): Merrick Candelaria DO CHIEF COMPLAINT: dizzy HPI: Patient is an 87-year-old male who presents to the ER with a history of vertigo. Patient was seen and evaluated by the PCP for dizziness. This was occurring Monday, Monday, and once today. These episodes last at max about an hour. There not significantly changed with movement. He denies any weakness or numbness in the arms or legs. He notes yesterday he was in a room when he had a little trouble getting out has he felt confused. This was very short-lived. He denies any headache or change in vision. No chest pain or shortness of breath. No nausea, vomiting, or diarrhea. No dysuria, urgency, or frequency. No other exacerbating or remitting factors. He believes he is back to his baseline currently. PAST MEDICAL HISTORY:See Below PAST SURGICAL HISTORY:See Below FAMILY HISTORY:See Below SOCIAL HISTORY:See Below HOME MEDICATIONS:See Below ALLERGIES:See Below VITALS:See Below PHYSICAL EXAMINATION: GENERAL: Sitting up in bed, alert, well appearing, well nourished, no distress, non-toxic EYE EXAM: normal conjunctiva. PERRL and EOM's intact. OROPHARYNX: no exudate, no erythema, lips, buccal mucosa, and tongue normal and mucous membranes are moist NECK: supple, no nuchal rigidity, no adenopathy, non-tender LUNGS: Clear to auscultation. Normal chest wall mechanics HEART: no murmurs, S1 normal and S2 normal ABDOMEN: abdomen soft, non-tender, normo-active bowel sounds, no masses, no rebound or guarding. BACK: Back is symmetrical on inspection and there is no deformity, no midline tenderness, no CVA tenderness. SKIN: no rashes and no bruising UPPER EXTREMITIES: upper extremities are grossly normal. LOWER EXTREMITIES: No pitting edema. NEURO EXAM: Normal sensorium, cranial nerves II-XII intact, normal speech, no weakness of arms, no weakness of legs. No drift. Finger to nose intact. Gross sensation intact. Ambulates to bathroom without difficulty. MEDICAL DECISION MAKING: Patient is a 87-year-old male who presents the ER for the above-stated complaint. IV was established blood work was obtained. He was referred in by PCP. Labs show no significant leukocytosis or anemia. BMP along LFTs bilirubin and TSH was unremarkable. Troponin was negative. UA with a small amount of ketones. COVID-negative. He was referred in by PCP for further evaluation. CT head was performed and shows a new stroke in comparison to his previous old CT. He admits to intermittent dizziness and an episode of confusion yesterday. With his presentation and findings I did discuss with the case with the hospitalist Dr. Amrit Dowling for further evaluation treatment and management. Was given aspirin. Updated bedside. External records were reviewed. Triage Nursing notes reviewed. Limited review of prior medical records performed Vital Signs: reviewed and remarkable for HTN Differential diagnosis: Differential diagnosis includes etiologies such as benign positional vertigo, dehydration, hypovolemia, anemia, tumor, infection, hypoglycemia, electrolyte abnormalities, cardiac sources, intracerebral event, toxicologic, neurological, as well as others were entertained. ER treatment provided: See below Diagnostics interpreted by me include EKG and cardiac monitoring as listed below: -Cardiac Monitoring: An order was placed for continuous cardiac monitoring. The monitor shows a rate of 70 with sinus rhythm. -ECG: Sinus rhythm rate of 63 Normal axis No PVCs Septal Q waves -Laboratory studies:Interpreted by me as stated above in MDM and shown below. Imaging studies: Xrays: As interpreted by me: Portable AP upright 1 view of the chest was unremarkable CTs show: CT head was negative Consultation(s): Discussed case with Dr. Amrit Dowling for further evaluation treatment and management Procedures:none Critical Care: None Past Med/Surg History Medical History Cough COVID-19 virus infection History of prostate cancer Hypertension Insomnia Osteoarthritis Vitamin D deficiency Surgical History History of bilateral knee replacement History of carpal tunnel surgery History of cataract surgery History of colonoscopy History of herniorrhaphy History of shoulder surgery History of toe surgery History of tonsillectomy History of tooth extraction Status post reverse total arthroplasty of right shoulder Family History Father Hearing loss Myocardial infarction Other No family history of adverse response to anesthesia No family history of bleeding disorder Denies family history of Ovarian cancer Prostate cancer Breast cancer Colorectal cancer Social History Smoking Status: Never smoker Second Hand Exposure: No (as a child); Hx Alcohol Use: No Hx Substance Use: No Preferred Language: Bulgarian Communication Ability: Effective Visual Impairment: No Limitations Hearing Ability: Normal Dental Hygiene Professor Required: No Beliefs That Will Affect Care: None marital status: Current Living Situation: Spouse current occupational status: retired How many Children do You have: 4 Feels Safe at Home: Yes Childhood Exposure to Second-Hand Smoke: Yes caffeine: Yes Dental Care, Regularly: Yes Physical Activity Frequency: Daily Seatbelt Use: always Sunscreen Use: No Assistive Devices: Denture - Upper Allergies Allergies Allergy/AdvReac Type Severity Reaction Status Date / Time aspirin Allergy Intermediate facial Verified 08/09/22 14:54 swelling hydrocodone AdvReac Intermediate hallucinati Verified 08/09/22 14:54 ons Home Meds Home Medications Medication Instructions Recorded Confirmed cholecalciferol (vitamin D3) 25 1,000 unit PO QAM 01/15/19 08/09/22 mcg (1,000 unit) capsule (Vitamin D3) triamcinolone acetonide 0.1 % 1 applic topical BID PRN AFFECTED 08/09/22 08/09/22 topical cream AREA Previous Rx's Medication Instructions Recorded apixaban 5 mg tablet (Eliquis) 5 mg PO BID #60 tabs 06/03/22 amlodipine 10 mg tablet 10 mg PO QAM #90 tabs 08/01/22 eszopiclone 2 mg tablet (Lunesta) 2 mg PO HS #90 tabs 08/01/22 metoprolol succinate 25 mg 25 mg PO QAM #90 tabs 08/01/22 tablet,extended release 24 hr Results & Data (ED) Vital Signs Vital Signs - 24 hr 08/09/22 12:23 08/09/22 14:46 Temperature 36.6 C Temperature Source Temporal Artery Scan Pulse Rate 71 Pulse Rate [Right Finger] 58 L Pulse Rhythm [Right Finger] Regular Pulse Strength [Right Finger] Normal Respiratory Rate 16 20 Respiratory Effort / Characteristics Non-Labored Respiratory Depth Normal Normal Respiratory Pattern Regular Blood Pressure 150/94 H Blood Pressure [Right Arm] 136/90 Blood Pressure Mean 112 Blood Pressure Mean [Right Arm] 105 Pulse Oximetry 92 92 Oxygen Delivery Method Room Air Room Air Sepsis Recent Fever Within 48 Hours No Sepsis New/Unexplained Change in Mental Status No Sepsis Action Taken by Nursing No Action Required Laboratory Data 08/09/22 12:50 08/09/22 12:50 Lab Results 08/09/22 08/09/22 08/09/22 Range/Units 12:50 12:50 12:50 WBC 7.08 (4.8-10.8) K/ul RBC 5.25 (4.70-6.10) M/uL Hgb 16.1 (14.0-18.0) g/dl Hct 48.0 (42.0-52.0) % MCV 91.4 (80.0-100.0) fL MCH 30.7 (25.0-34.0) pg MCHC 33.5 (32.0-36.0) g/dL RDW Std Deviation 44.7 (36.4-46.3) fL RDW Coeff of Jerson 13.3 (11.5-14.5) % Plt Count 208 (130-400) K/uL MPV 10.2 (9.4-12.4) fL Immature Gran % (Auto) 0.3 % Neut % (Auto) 69.8 % Lymph % (Auto) 16.2 % Jerome % (Auto) 11.4 % Eos % (Auto) 1.7 % Baso % (Auto) 0.6 % Neut # (Auto) 4.94 (1.40-6.50) K/uL Lymph # (Auto) 1.15 L (1.2-3.4) K/uL Jerome # (Auto) 0.81 H (0.11-0.59) K/uL Eos # (Auto) 0.12 (0-0.50) K/uL Baso # (Auto) 0.04 (0-0.2) K/uL Immature Gran # (Auto) 0.02 (0.01-0.20) K/uL Sodium 136 (136-145) mmol/L Potassium 4.2 (3.5-5.1) mmol/L Chloride 104 (98-107) mmol/L Carbon Dioxide 26 (21-32) mmol/L Anion Gap 6 (3-11) BUN 15 (6-23) mg/dl Creatinine 0.88 (0.6-1.4) mg/dl Est Cr Clr Drug Dosing 66.0 ml/min Est GFR ( Amer) 89.5 ml/min Est GFR (Non-Af Amer) 77.2 ml/min BUN/Creatinine Ratio 17.0 (10-20) Glucose 96 (70-99(Fasting)) mg/dl Calcium 9.4 (8.5-10.1) mg/dl Total Bilirubin 0.7 (0.2-1.0) mg/dl AST 19 (13-39) U/L ALT 22 (7-52) U/L Alkaline Phosphatase 73 (34-104) U/L Troponin I High Sens 15.9 (0-20) pg/ml Total Protein 7.6 (6.0-8.3) gm/dl Albumin 4.3 (3.4-5.0) gm/dl Globulin 3.3 (2.5-4.0) gm/dl Albumin/Globulin Ratio 1.3 (0.9-2) TSH 0.900 (0.300-4.500) uIu/ml Urine Color Urine Appearance (Clear) Urine pH (4.5-7.5) Ur Specific Krum (1.000-1.030) Urine Protein (Negative) Urine Glucose (UA) (Negative) Urine Ketones (Negative) Urine Blood (Negative) Urine Nitrite (Negative) Urine Bilirubin (Negative) Urine Urobilinogen (Negative) Ur Leukocyte Esterase (Negative) SARS-CoV-2, RNA, NAAT (NEGATIVE) 08/09/22 08/09/22 Range/Units 13:21 14:50 WBC (4.8-10.8) K/ul RBC (4.70-6.10) M/uL Hgb (14.0-18.0) g/dl Hct (42.0-52.0) % MCV (80.0-100.0) fL MCH (25.0-34.0) pg MCHC (32.0-36.0) g/dL RDW Std Deviation (36.4-46.3) fL RDW Coeff of Jerson (11.5-14.5) % Plt Count (130-400) K/uL MPV (9.4-12.4) fL Immature Gran % (Auto) % Neut % (Auto) % Lymph % (Auto) % Jerome % (Auto) % Eos % (Auto) % Baso % (Auto) % Neut # (Auto) (1.40-6.50) K/uL Lymph # (Auto) (1.2-3.4) K/uL Jerome # (Auto) (0.11-0.59) K/uL Eos # (Auto) (0-0.50) K/uL Baso # (Auto) (0-0.2) K/uL Immature Gran # (Auto) (0.01-0.20) K/uL Sodium (136-145) mmol/L Potassium (3.5-5.1) mmol/L Chloride (98-107) mmol/L Carbon Dioxide (21-32) mmol/L Anion Gap (3-11) BUN (6-23) mg/dl Creatinine (0.6-1.4) mg/dl Est Cr Clr Drug Dosing ml/min Est GFR ( Amer) ml/min Est GFR (Non-Af Amer) ml/min BUN/Creatinine Ratio (10-20) Glucose (70-99(Fasting)) mg/dl Calcium (8.5-10.1) mg/dl Total Bilirubin (0.2-1.0) mg/dl AST (13-39) U/L ALT (7-52) U/L Alkaline Phosphatase (34-104) U/L Troponin I High Sens (0-20) pg/ml Total Protein (6.0-8.3) gm/dl Albumin (3.4-5.0) gm/dl Globulin (2.5-4.0) gm/dl Albumin/Globulin Ratio (0.9-2) TSH (0.300-4.500) uIu/ml Urine Color Yellow Urine Appearance Clear (Clear) Urine pH 5.0 (4.5-7.5) Ur Specific Krum 1.017 (1.000-1.030) Urine Protein Negative (Negative) Urine Glucose (UA) Negative (Negative) Urine Ketones Trace H (Negative) Urine Blood Negative (Negative) Urine Nitrite Negative (Negative) Urine Bilirubin Negative (Negative) Urine Urobilinogen Negative (Negative) Ur Leukocyte Esterase Negative (Negative) SARS-CoV-2, RNA, NAAT NEGATIVE (NEGATIVE) Administered Medications Discontinued Medications Sodium Chloride (Nss) 500 mls @ 999 mls/hr IV .Q31M ONE Stop: 08/09/22 14:55 Last Admin: 08/09/22 14:44 Dose: 999 mls/hr Documented By: [email or web address] Imaging Data Radiologist's Impression: Head CT 08/09/22 13:[address] DOSE: 788.63 mGycm HISTORY: vertigo TECHNIQUE: Multiaxial CT images of the head were performed without the use of intravenous contrast. Automated exposure control was utilized for this study. A dose lowering technique was utilized adhering to the principles of ALARA. Comparison: Head CT 01/07/2021. Findings: Partial opacification and fluid levels seen within the frontal sinuses, ethmoid air cells, maxillary sinuses. This has slightly progressed in the interval. The mastoid air cells are clear. The calvarium and skull base are intact. There is no mass, hematoma, midline shift, acute infarct. White matter hypodensity is nonspecific but suggestive of microvascular ischemic change. The ventricles and sulci demonstrate mild age-related involutional changes. A small focus of encephalomalacia within the left occipital lobe consistent with an old infarct. This is new from the prior study. Impression: 1. No acute infarct or intracranial hemorrhage. 2. 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 3. Slight progression of the acute on chronic paranasal sinus disease. ACT 112: Negative or not required by law. Electronically signed by: Daniele Calle M.D. 08/09/2022 1:47 PM Chest X-Ray 08/09/22 13:46 XR chest 1V portable HISTORY: 87 years-old Male cp acute chest pain COMPARISON: 09/24/2021 TECHNIQUE: AP view of the chest FINDINGS: Cardiac silhouette is enlarged. No pneumothorax, large pleural effusion or overt pulmonary edema. Right infrahilar opacity. Mild subsegmental bibasilar atelectasis/scarring. Bilateral shoulder replacements. Degenerative changes of the spine. IMPRESSION: 1. Cardiomegaly without pulmonary edema. 2. Right infrahilar opacity is likely secondary to summation density/atelectasis. ACT 112: Negative or not required by law. The above report was generated using voice recognition software. It may contain grammatical, syntax or spelling errors. Electronically signed by: Nikhil Aguilera M.D. 08/09/2022 2:30 PM Discharge Plan Visit Data Chief Complaint: Referred by Doctor Stated Complaint: DOC WANTS A CAT SCAN ED Provider: Merrick Candelaria Discharge Problem: CVA (cerebrovascular accident), Dizziness Forms Stand Alone Forms: My [facility] [employer] Prescriptions Prescriptions: No Action Eliquis 5 mg tablet 5 mg PO BID Qty: 60 2RF amlodipine 10 mg tablet 10 mg PO QAM Qty: 90 3RF metoprolol succinate 25 mg tablet extended release 24 hr 25 mg PO QAM Qty: 90 3RF eszopiclone [Lunesta] 2 mg tablet 2 mg PO HS Qty: 90 3RF cholecalciferol (vitamin D3) [Vitamin D3] 1,000 unit Capsule 1,000 unit PO QAM triamcinolone acetonide 0.1 % cream 1 applic TOP BID PRN (Reason: AFFECTED AREA) Rx Instructions: Apply to areas of the trunk twice daily for up to 2 weeks as needed for flaring. Referrals Referrals: Gee Colmenares MD [Primary Care Provider] -
[2022-08-09 13:35] LABS: Basophils # (auto) 0.04 K/uL (0-0.2); Basophils % (auto) 0.6 %; Eosinophils # (auto) 0.12 K/uL (0-0.50); Eosinophils % (auto) 1.7 %; Hemoglobin 16.1 g/dl (14.0-18.0); Immature Granulocytes # (auto) 0.02 K/uL (0.01-0.20); Immature Granulocytes % (auto) 0.3 %; Lymphocytes # (auto) 1.15 K/uL (1.2-3.4); Lymphocytes % (auto) 16.2 %; Mean Corpuscular Hemoglobin 30.7 pg (25.0-34.0); Mean Corpuscular Hgb Conc 33.5 g/dL (32.0-36.0); Mean Corpuscular Volume 91.4 fL (80.0-100.0); Mean Platelet Volume 10.2 fL (9.4-12.4); Monocytes # (auto) 0.81 K/uL (0.11-0.59); Monocytes % (auto) 11.4 %; Neutrophils # (auto) 4.94 K/uL (1.40-6.50); Neutrophils % (auto) 69.8 %; Platelet Count 208 K/uL (130-400); RDW Coefficient of Variation 13.3 % (11.5-14.5); RDW Standard Deviation 44.7 fL (36.4-46.3); Red Blood Count 5.25 M/uL (4.70-6.10); White Blood Count 7.08 K/ul (4.8-10.8)
--- NOTE | 2022-08-09 13:49 | CT Scan Report ---
HEAD CT NONCONTRAST CT DOSE: 788.63 mGycm HISTORY: vertigo TECHNIQUE: Multiaxial CT images of the head were performed without the use of intravenous contrast. A utomated exposure control was utilized for this study. A dose lowering technique was utilized adheri ng to the principles of ALARA. Comparison: Head CT 01/07/2021. Findings: Partial opacification and fluid levels seen within the frontal sinuses, ethmoid air cells, maxillary sinuses. This has slightly progressed in the interval. The mastoid air cells are clear. The calvarium and skull base are intact. There is no mass, hematoma, midline shift, acute infarct. White matter hypodensity is nonspecific but suggestive of microvascular ischemic change. The ventricles an d sulci demonstrate mild age-related involutional changes. A small focus of encephalomalacia within t he left occipital lobe consistent with an old infarct. This is new from the prior study. Impression: 1. No acute infarct or intracranial hemorrhage. 2. 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 3. Slight progression of the acute on chronic paranasal sinus disease. ACT 112: Negative or not required by law. Electronically signed by: Daniele Calle M.D. 08/09/2022 1:47 PM
[2022-08-09 13:52] LABS: Appearance Urine Clear (Clear); Bilirubin Urine Negative (Negative); Blood Urine Negative (Negative); Color Urine Yellow; Glucose Urine UA Negative (Negative); Ketones Urine Trace (Negative); Leukocyte Esterase Urine Negative (Negative); Nitrite Urine Negative (Negative); Protein Urine Negative (Negative); Specific Gravity Urine 1.017 (1.000-1.030); Urobilinogen Urine Negative (Negative)
[2022-08-09 13:57] LABS: Albumin Globulin Ratio 1.3 (0.9-2); Albumin Level 4.3 gm/dl (3.4-5.0); Bilirubin,Total 0.7 mg/dl (0.2-1.0); Calcium 9.4 mg/dl (8.5-10.1); Est GFR (African American) 89.5 ml/min; Est GFR (Non-African American) 77.2 ml/min; Globulin 3.3 gm/dl (2.5-4.0); Potassium 4.2 mmol/L (3.5-5.1); Total Protein 7.6 gm/dl (6.0-8.3); Troponin I High Sensitivity 15.9 pg/ml (0-20)
[2022-08-09] MEDS ORDERED: SODIUM CHLORIDE 0.9% 500 ML IV ONE (14:25)
--- NOTE | 2022-08-09 14:32 | XRay Report ---
XR chest 1V portable HISTORY: 87 years-old Male cp acute chest pain COMPARISON: 09/24/2021 TECHNIQUE: AP view of the chest FINDINGS: Cardiac silhouette is enlarged. No pneumothorax, large pleural effusion or overt pulmonary edema. Rig ht infrahilar opacity. Mild subsegmental bibasilar atelectasis/scarring. Bilateral shoulder replaceme nts. Degenerative changes of the spine. IMPRESSION: 1. Cardiomegaly without pulmonary edema. 2. Right infrahilar opacity is likely secondary to summation density/atelectasis. ACT 112: Negative or not required by law. The above report was generated using voice recognition software. It may contain grammatical, syntax o r spelling errors. Electronically signed by: Nikhil Aguilera M.D. 08/09/2022 2:30 PM
--- NOTE | 2022-08-09 16:32 | Electrocardiogram Report ---
Test Reason : Blood Pressure : / mmHG Vent. Rate : 063 BPM Atrial Rate : 063 BPM P-R Int : 192 ms QRS Dur : 104 ms QT Int : 428 ms P-R-T Axes : 071 -29 026 degrees QTc Int : 437 ms Poor data quality, interpretation may be adversely affected Normal sinus rhythm Possible Anterior infarct (cited on or before 07-JAN-2021) Abnormal ECG When compared with ECG of 07-JAN-2021 11:35, No significant change was found Confirmed by Humberto Sarmiento ([id number]) on 08/09/2022 4:31:42 PM Referred By: Leidy Castro Confirmed By:Humberto Sarmiento
--- NOTE | 2022-08-09 16:51 | History & Physical Report ---
Date of Service August 09, 2022 Assessment & Plan (1) Dizziness: (2) Deep vein thrombosis (DVT): (3) HTN (hypertension): Plan 87 yo with PMH of HTN, COVID19 infection in Jul, prostate cancer, and insomnia who presented with 3 days of episodic dizziness, confusion, and subj. peripheral vision loss. Dizziness - Given age, hx of old infarct on CT head, and presenting symptoms, consider TIA vs. CVA from cardioembolic, thromboembolic, or atherosclerotic source. Considered polypharmacy induced delirium (codeine, Eszopiclone), dehydration, infection, recent illness, and migraine. Hx of vertigo, given description of symptoms, no triggers with movement and timing, less likely BPPV, or peripheral vertigo. - CT Head: "1. No acute infarct or intracranial hemorrhage. 2. 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 100 ml/hr NSS Anticoagulation: Eliquis Code: Full Dispo: Med/Tele History of Present Illness Chief Complaint: 3 days of intermittent dizziness, confusion, and unsteadiness Primary Care Provider: Gee Colmenares MD Dilan Wiggins is an 87 yo male with PMH of HTN, prostate cancer, COVID-19 infection in Jul 2022, insomnia, and osteoarthritis who presented to the ED with 3 days of episodic dizziness, confusion, unsteadiness, and subj. loss of peripheral vision. On (08/06), he was eating lunch with his and was standing when he said he suddenly felt lightheaded and "not right" so he had to sit down. He did not note any shortness of breath, chest pain, palpitations, numbness, weakness, or tingling at the time. He sat down and said this feeling went away in about 30 minutes. On (08/07), he [facility] his son [facility] and on the way home he stopped at a place that he is very familiar, but said he got confused and couldn't find his way out. He said this lasted about 30 minutes and finally he was able to find his away out and remember where he was. On the evening of (08/08), he was sleeping and got up to go to the bathroom and felt very unsteady and dizzy, saying that he had to hold onto something otherwise he would lose his balance. He also noted discomfort in his head at the time in a band-like distribution. This morning at breakfast, he says he ran into his twice because he said his peripheral vision wasn't very good and he may have had some blurry vision at the time. He says this is new as of the last few days. He also notes that because of this feeling his gait has been different and he takes shorter steps. His recent COVID-19 infection was mild; he did take Molnupiravir and Doxycycline and Codeine cough syrup in addition to his Eszopiclone 2mg nightly for insomnia. He saw his PCP again this morning due to the new confusion and dizziness and she sent him to the ED. ED course: Bolus of 500 mls NSS was given. 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 Allergies Allergy/AdvReac Type Severity Reaction Status Date / Time aspirin Allergy Intermediate facial Verified 08/09/22 14:54 swelling hydrocodone AdvReac Intermediate hallucinati Verified 08/09/22 14:54 ons Home Medications Medication Instructions Recorded Confirmed Type cholecalciferol (vitamin D3) 25 1,000 unit PO QAM 01/15/19 08/09/22 History mcg (1,000 unit) capsule (Vitamin D3) apixaban 5 mg tablet (Eliquis) 5 mg PO BID #60 tabs 06/03/22 08/09/22 Rx amlodipine 10 mg tablet 10 mg PO QAM #90 tabs 08/01/22 08/09/22 Rx eszopiclone 2 mg tablet (Lunesta) 2 mg PO HS #90 tabs 08/01/22 08/09/22 Rx metoprolol succinate 25 mg 25 mg PO QAM #90 tabs 08/01/22 08/09/22 Rx tablet,extended release 24 hr triamcinolone acetonide 0.1 % 1 applic topical BID PRN AFFECTED 08/09/22 08/09/22 History topical cream AREA Past Med/Surg History Medical History Cough COVID-19 virus infection History of prostate cancer dx 18 years ago; h/o radioactive seed implants Hypertension Insomnia Osteoarthritis Vitamin D deficiency Surgical History History of bilateral knee replacement History of carpal tunnel surgery Bilateral History of cataract surgery RT/LEFT History of colonoscopy History of herniorrhaphy INGUINAL History of shoulder surgery RT/LEFT History of toe surgery LEFT FOOT History of tonsillectomy History of tooth extraction Status post reverse total arthroplasty of right shoulder Biceps tenodesis, debridement of rotator cuff- 02/13/[address] 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: No Beliefs That Will Affect Care: None marital status: Current Living Situation: Spouse current occupational status: retired How many Children do You have: 4 Feels Safe at Home: Yes Childhood Exposure to Second-Hand Smoke: Yes caffeine: Yes Dental Care, Regularly: Yes Physical Activity Frequency: Daily Seatbelt Use: always Sunscreen Use: No Assistive Devices: Denture - Upper Review of Systems Review of Systems: Gen- no fever, chills HEENT- + blurry vision, no change in hearing, no congestion Pulm- no sob CV- no chest pain, palpitations GI/- no dysuria, no urgency, increased frequency Neuro- no numbness, weakness, tingling, pins and needles Physical Exam Physical Exam: Gen- WN/WD, sitting comfortably in no acute distress HEENT- NC/AT, PERRL, oral and pharyngeal mucosa moist Pulm- good breathing effort, no use of accessory muscles, decreased breath sounds bilaterally but no crackles, rales, wheezing CV- normal S1 and S2, no m/r/g, no JVD, no LE edema Abd- normal bowel sounds, soft, non-tender to palpation in all 4 quadrants, no rebound or guarding MSK/Derm- seborrheic dermatoses seen on the upper back, no rashes, bruising, swelling Neuro- Cranial Nerves: II: 20/20 vision. Peripheral vision intact. III/IV/: follows finger with eyes superiorly, laterally, inferiorly. V: sensation normal in the V 1,V2, V3 distribution. VII: raises eyebrows, squeezes eyes shut, puffs out cheeks, smile equal bilaterally. VIII: hears whisper bilaterally. IX, X: palate elevation normal, Motor: 5/5 strength bilaterally UE and LE Reflexes: +2/4 bilaterally in biceps, triceps, brachioradialis, patellar, Achiles. Negative Babinski. Sensation: sensation to dull and sharp intact bilaterally UE and LE Coordination: Rapidly alternating movement intact. Finger to nose symmetric, no dysmetria, slight action tremor at the end of the movement. Negative Romberg, negative pronator drift. Gait: slow magnetic, gait. short steps, minimal arm movement. Results & Data Results & Data ([facility]) Vital Signs (Past 12 Hours) Vital Signs Temp Pulse Pulse Resp BP BP Pulse Ox 08/09/22 14:46 58 L 20 136/90 92 08/09/22 12:23 36.6 C 71 16 150/94 H 92 O2 Del Method 08/09/22 14:46 Room Air 08/09/22 12:23 Room Air Laboratory Results Cardiac Enzymes 08/09/22 Range/Units 12:50 AST 19 (13-39) U/L Troponin I High Sens 15.9 (0-20) pg/ml CBC 08/09/22 Range/Units 12:50 WBC 7.08 (4.8-10.8) K/ul RBC 5.25 (4.70-6.10) M/uL Hgb 16.1 (14.0-18.0) g/dl Hct 48.0 (42.0-52.0) % Plt Count 208 (130-400) K/uL Neut # (Auto) 4.94 (1.40-6.50) K/uL Lymph # (Auto) 1.15 L (1.2-3.4) K/uL [place] # (Auto) 0.81 H (0.11-0.59) K/uL Eos # (Auto) 0.12 (0-0.50) K/uL Baso # (Auto) 0.04 (0-0.2) K/uL Comprehensive Metabolic Panel 08/09/22 Range/Units 12:50 Sodium 136 (136-145) mmol/L Potassium 4.2 (3.5-5.1) mmol/L Chloride 104 (98-107) mmol/L Carbon Dioxide 26 (21-32) mmol/L BUN 15 (6-23) mg/dl Creatinine 0.88 (0.6-1.4) mg/dl Glucose 96 (70-99(Fasting)) mg/dl Calcium 9.4 (8.5-10.1) mg/dl AST 19 (13-39) U/L ALT 22 (7-52) U/L Alkaline Phosphatase 73 (34-104) U/L Total Protein 7.6 (6.0-8.3) gm/dl Albumin 4.3 (3.4-5.0) gm/dl Intake and Output 08/09/22 08/09/22 08/09/22 06:59 14:59 22:59 Intake Total 500 / 500 Balance 500 / 500 Intake: IV 500 / 500 Sodium Chloride 0.9% 500 ml @ 500 / 500 999 mls/hr IV .Q31M ONE Rx#: [id number] Other: Weight 91.1 kg Patient Weight 08/10/22 06:59 Weight 91.1 kg Diagnostic Findings Head CT 08/09/22 13:[address] DOSE: 788.63 mGycm HISTORY: vertigo TECHNIQUE: Multiaxial CT images of the head were performed without the use of intravenous contrast. Automated exposure control was utilized for this study. A dose lowering technique was utilized adhering to the principles of ALARA. Comparison: Head CT 01/07/2021. Findings: Partial opacification and fluid levels seen within the frontal sinuses, ethmoid air cells, maxillary sinuses. This has slightly progressed in the interval. The mastoid air cells are clear. The calvarium and skull base are intact. There is no mass, hematoma, midline shift, acute infarct. White matter hypodensity is nonspecific but suggestive of microvascular ischemic change. The ventricles and sulci demonstrate mild age-related involutional changes. A small focus of encephalomalacia within the left occipital lobe consistent with an old infarct. This is new from the prior study. Impression: 1. No acute infarct or intracranial hemorrhage. 2. 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 3. Slight progression of the acute on chronic paranasal sinus disease. ACT 112: Negative or not required by law. Electronically signed by: Daniele Calle M.D. 08/09/2022 1:47 PM Chest X-Ray 08/09/22 13:46 XR chest 1V portable HISTORY: 87 years-old Male cp acute chest pain COMPARISON: 09/24/2021 TECHNIQUE: AP view of the chest FINDINGS: Cardiac silhouette is enlarged. No pneumothorax, large pleural effusion or overt pulmonary edema. Right infrahilar opacity. Mild subsegmental bibasilar atelectasis/scarring. Bilateral shoulder replacements. Degenerative changes of the spine. IMPRESSION: 1. Cardiomegaly without pulmonary edema. 2. Right infrahilar opacity is likely secondary to summation density/atelectasis. ACT 112: Negative or not required by law. The above report was generated using voice recognition software. It may contain grammatical, syntax or spelling errors. Electronically signed by: Nikhil Aguilera M.D. 08/09/2022 2:30 PM ECG Additional Comments: Vent. Rate : 063 BPM Atrial Rate : 063 BPM P-R Int : 192 ms QRS Dur : 104 ms QT Int : 428 ms P-R-T Axes : 071 -29 026 degrees QTc Int : 437 ms Poor data quality, interpretation may be adversely affected Normal sinus rhythm Possible Anterior infarct (cited on or before 07-JAN-2021) Abnormal ECG When compared with ECG of 07-JAN-2021 11:35, No significant change was found Confirmed by Humberto Sarmiento ([id number]) on 08/09/2022 4:31:42 PM Referred By: Leidy Castro Confirmed By:Humberto Sarmiento Code Status & VTE Plan Code Status Code status: Full Code VTE Prophylaxis Plan VTE Prophylaxis will be ordered: Yes Supervising Physician Co-Signing Physician Notes I personally examined the patient and verified all kumar points of history and exam, discussed case, and agree with decision making with Dr Sanchez MS4 and Dr Tavarez Transient dizziness, 1 episode of transient confusion. All since Monday. Had COVID about a month ago, took Paxlovid, PCP put him on doxycycline and codeinelast dose of codeine was probably Monday. Relates that he has been eating okay, but probably not drinking enoughprobably only about 36 ounces of fluid that does not coffee a day. Vitals noted. No distress. HEENT normocephalic atraumatic mucous membranes moist. Breathing unlabored no accessory muscle use good effort. Skin shows no rashes no pallor or icterus. Exam otherwise as above. Transient dizziness, 1 episode somewhat consistent with TGAsuspect polypharmacy and dehydration on the heels of having had COVID, at the same time hard to rule out TIAand given that that would have more lasting consequences, will work-up as such. MRI brain, CT angio, echocardiogram, lipids/A1c/follow blood pressure. Consider outpatient event monitor. In terms of remedying the probable dehydration/polypharmacyis now off of codeine, does not appear to need to complete course of doxycyclinewe will hold on further treatment of that for now and follow. IV fluids. Otherwise as above.
--- NOTE | 2022-08-09 18:36 | Billing Data ---
Date of Service August 09, 2022 Coding Level of Care Code 42170 INT INP/OBS CARE
[2022-08-09] MEDS ORDERED: PHARMACIST DISCHARGE MED REC CONSULT PRN (19:22)
[2022-08-09] MEDS ORDERED: OPTIRAY 320 500ml IV ONE (20:23)
[2022-08-09] MEDS ORDERED: GADOBUTROL 65ML VIAL IV ONE (20:51)
--- NOTE | 2022-08-09 20:51 | CT Scan Report ---
CT ANGIOGRAPHY OF THE NECK WITH CONTRAST CLINICAL HISTORY: dizziness COMPARISON STUDY: CTA of the neck January 07, 2021 Technique: CT angiography of the carotid and vertebral arteries was obtained using Optiray and 3D rec onstruction on an independent workstation. NASCET criteria was utilized. Automated exposure control was utilized for the study. A dose lowering technique was utilized adhering to the principles of ALA RA. Findings: There is suspected mild to moderate stenosis at the origin the left vertebral artery, subop timally assessed on this exam. Right vertebral artery is unremarkable. No additional stenoses are pre sent. The bilateral common carotid and cervical internal carotid arteries are patent. There is modera te plaque within the bilateral carotid bifurcations without stenosis. Moderate sinus mucosal thickeni ng is incidentally noted. There is no cervical lymphadenopathy. No acute cervical spine fracture is p resent. IMPRESSION: 1. 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 No additional stenoses within the bilateral common carotid, cervical internal carotid or vert ebral arteries. 2. Moderate plaque within the bilateral carotid bifurcations without stenosis. ACT 112: Negative or not required by law. Electronically signed by: Edward Kaplan M.D. 08/09/2022 8:49 PM
[2022-08-09] MEDS ORDERED: ROSUVASTATIN CALCIUM 20 MG TAB PO SCH (21:00)
[2022-08-09] MEDS ORDERED: APIXABAN 5 MG TABLET PO SCH (21:00)
--- NOTE | 2022-08-09 21:23 | Magnetic Resonance Report ---
MRI OF THE BRAIN WITHOUT AND WITH IV CONTRAST CLINICAL HISTORY: dizziness COMPARISON STUDY: Head CT and CTA of the head performed earlier today. TECHNIQUE: Utilizing a 1.5 Nikole magnet and dedicated coil, multiplanar, multiecho imaging of the br ain was performed pre and postcontrast administration. IV administration of 8.9 mL of Gadavist contr ast was uneventful. FINDINGS: There are multiple acute infarcts within the right occipital lobe. In addition, there is a 1.7 cm acute infarct within the right parietal lobe on axial image 21 of 24. There is mild associated edema on the T2-weighted sequences. There are possible small acute infarcts within the right cerebel lar hemisphere on axial image 7 of 24. No mass effect. There is no acute hemorrhage. Ventricular syst em is unremarkable. Basal cisterns are patent. There are no extra axial collections. Flow-voids for t he major intracranial vessels are present. There is no intracranial mass or pathologic enhancement. T here is extensive sinus opacification, as shown on prior CT. Calvarial signal is normal. IMPRESSION: Multiple acute infarcts within the right occipital lobe and a 1.7 cm right parietal lobe infarct. Possible small acute infarcts within the right cerebellar hemisphere. No mass effect. No ac buster hemorrhage. ACT 112: Negative or not required by law. Electronically signed by: Edward Kaplan M.D. 08/09/2022 9:21 PM
--- NOTE | 2022-08-09 21:27 | CT Scan Report ---
CTA ANGIOGRAPHY OF THE HEAD CLINICAL HISTORY: dizziness COMPARISON STUDY: CTA of the head January 07, 2022. TECHNIQUE: Helical axial images of the head were obtained following uneventful intravenous administr ation of 111 cc of Optiray. Sagittal and coronal reconstructions were viewed as well as maximal inten sity projections on an independent 3-D workstation. Automated exposure control was utilized for the study. A dose lowering technique was utilized adhering to the principles of ALARA. CT DOSE: 641.49 mGy.cm FINDINGS: Ventricular system is stable. Basal cisterns are patent. There are no extra axial collectio ns. No acute hemorrhage is identified on this contrast enhanced exam. There is extensive mucosal thic kening of the bilateral maxillary and ethmoid sinuses. There is also moderate mucosal thickening of t he frontal and left sphenoid sinuses. Bilateral M1, M2, A1 and A2 segments are patent. There is no c entral vessel occlusion. No intracranial aneurysm is identified. Posterior circulation is also intact . There is minimal plaque within the bilateral cavernous carotids without stenosis. There is mild norah que within the intracranial portion of the right vertebral artery. IMPRESSION: No central vessel occlusion. No intracranial aneurysm. ACT 112: Negative or not required by law. Electronically signed by: Edward Kaplan M.D. 08/09/2022 9:25 PM
[2022-08-09] MEDS: SODIUM CHLORIDE 0.9% 1000ML 1,000 ML IV SCH (22:01)
[2022-08-10 06:50] LABS: Basophils # (auto) 0.04 K/uL (0-0.2); Basophils % (auto) 0.6 %; Eosinophils # (auto) 0.09 K/uL (0-0.50); Eosinophils % (auto) 1.3 %; Hematocrit (blood only) 45.8 % (42.0-52.0); Hemoglobin 15.8 g/dl (14.0-18.0); Immature Granulocytes # (auto) 0.02 K/uL (0.01-0.20); Immature Granulocytes % (auto) 0.3 %; Lymphocytes # (auto) 1.16 K/uL (1.2-3.4); Lymphocytes % (auto) 17.2 %; Mean Corpuscular Hemoglobin 30.9 pg (25.0-34.0); Mean Corpuscular Hgb Conc 34.5 g/dL (32.0-36.0); Mean Corpuscular Volume 89.6 fL (80.0-100.0); Mean Platelet Volume 9.9 fL (9.4-12.4); Monocytes # (auto) 0.71 K/uL (0.11-0.59); Monocytes % (auto) 10.5 %; Neutrophils # (auto) 4.72 K/uL (1.40-6.50); Neutrophils % (auto) 70.1 %; Platelet Count 202 K/uL (130-400); RDW Coefficient of Variation 13.1 % (11.5-14.5); RDW Standard Deviation 42.9 fL (36.4-46.3); Red Blood Count 5.11 M/uL (4.70-6.10); White Blood Count 6.74 K/ul (4.8-10.8)
[2022-08-10 07:13] LABS: BUN Creatinine Ratio 18.4 (10-20); Calcium 9.4 mg/dl (8.5-10.1); Chol HDL Ratio 3.9 (0-5); Creatinine Clr Calc Pharmacy 65.2 ml/min; Est GFR (African American) 89.9 ml/min; Est GFR (Non-African American) 77.6 ml/min; Magnesium 1.9 mg/dl (1.7-2.4); Potassium 4.2 mmol/L (3.5-5.1)
[2022-08-10 08:09] LABS: Estimated Average Glucose 111 mg/dl; Hemoglobin A1C 5.5 % (4.5-5.6)
[2022-08-10] MEDS: SODIUM CHLORIDE 0.9% 1000ML 1,000 ML IV SCH (08:10)
[2022-08-10] MEDS ORDERED: amLODIPine BESYLATE 5 MG TAB PO SCH (09:00)
[2022-08-10] MEDS ORDERED: METOPROLOL SUCC 25MG EXT REL TAB PO SCH (09:00)
--- NOTE | 2022-08-10 09:04 | Neurology Consultation ---
Date of Consultation August 10, 2022 Assessment & Plan (1) CVA (cerebrovascular accident): 87yo male with a history of HTN, prostate cancer, DVT (06/02, now on eliquis), and recent covid infection (Jul 2022) presented to [facility] on 08/09/22 with a three- day history of episodic confusion, lightheadedness, dysequilibrium, and peripheral vision loss, found to be secondary to acute CVA. Acute CVA Patient presents with a three-day history of neurological symptoms including intermittent lightheadedness, disorientation, dysequilibrium, and peripheral vision loss Vitals notable only for mildly elevated BP; labs unremarkable Imaging findings noted in HPI - results concerning for cardioembolic stroke given multiple acute infarcts in both anterior and posterior vascular distributions, though atherosclerotic contribution is not excluded Unclear if provoked vs unprovoked; risk factors include covid infection three weeks ago, DVT in May, and remote history of prostate cancer Echo pending Lipids not elevated Continue antihypertensive regimen Continue anticoagulation with eliquis Consider addition of plavix to optimize vessel patency PT/OT evaluation prior to discharge, consider consulting case management for a home safety assessment Please reach out to neurology with any further questions History of Present Illness Reason for Consultation: AMS - confusion, dysequilibrium, peripheral vision loss Attending Physician: Merrick Cm DO History of Present Illness 87yo male with a history of HTN, prostate cancer, DVT (06/02, now on eliquis), and recent covid infection (Jul 2022) presented to [facility] on 08/09/22 with a three- day history of episodic confusion, lightheadedness, dysequilibrium, and peripheral vision loss. Neurology was consulted after imaging findings were suggestive of acute CVA. 08/06: patient had an episode of lightheadedness and "not feeling right"; patient sat down and symptoms resolved after about 30 minutes 08/07: patient was driving home when he became confused and got lost on a familiar road; again this resolved after about 30 minutes and patient was able to make it home on his own 08/08: patient got up to go to the bathroom at night and noticed lightheadedness, unsteady gait, and mild headache; patient needed to hold onto the wall in order to make it back to bed without falling 08/09: patient notes he ran into his twice due to subjective poor peripheral vision, which has not happened to patient before Patient notes that the peripheral vision loss has been intermittent over the past three days, though he notes his vision felt normal during my interview. Both over the past few days, as well as at this time, denies CP, SOB, abdominal pain, nausea, vomiting, numbness, or tingling. This morning, patient feels well and denies symptoms including his presenting symptoms. CT head: old small left occipital lobe infarct, new from prior study in 2020 CTA head: no central ventral occlusion, no aneurysm CTA neck: mild/moderate stenosis of left vertebral artery; moderate plaque within bilateral carotid bifurcations without stenosis MRI brain: multiple acute infarcts within right occipital lobe; 1.7cm acute right parietal lobe infarct; possible acute infarcts in right cerebellar hemisphere; no mass effect, no acute hemorrhage Allergies Allergy/AdvReac Type Severity Reaction Status Date / Time aspirin Allergy Intermediate facial Verified 08/09/22 14:54 swelling hydrocodone AdvReac Intermediate hallucinati Verified 08/09/22 14:54 ons Home Medications Medication Instructions Recorded Confirmed Type cholecalciferol (vitamin D3) 25 1,000 unit PO QAM 01/15/19 08/09/22 History mcg (1,000 unit) capsule (Vitamin D3) apixaban 5 mg tablet (Eliquis) 5 mg PO BID #60 tabs 06/03/22 08/09/22 Rx amlodipine 10 mg tablet 10 mg PO QAM #90 tabs 08/01/22 08/09/22 Rx eszopiclone 2 mg tablet (Lunesta) 2 mg PO HS #90 tabs 08/01/22 08/09/22 Rx metoprolol succinate 25 mg 25 mg PO QAM #90 tabs 08/01/22 08/09/22 Rx tablet,extended release 24 hr triamcinolone acetonide 0.1 % 1 applic topical BID PRN AFFECTED 08/09/22 08/09/22 History topical cream AREA Patient History Medical History Cough COVID-19 virus infection History of prostate cancer dx 18 years ago; h/o radioactive seed implants Hypertension Insomnia Osteoarthritis Vitamin D deficiency Surgical History History of bilateral knee replacement History of carpal tunnel surgery Bilateral History of cataract surgery RT/LEFT History of colonoscopy History of herniorrhaphy INGUINAL History of shoulder surgery RT/LEFT History of toe surgery LEFT FOOT History of tonsillectomy History of tooth extraction Status post reverse total arthroplasty of right shoulder Biceps tenodesis, debridement of rotator cuff- 02/13/[address] Almeida Family History Father Hearing loss Myocardial infarction Other No family history of adverse response to anesthesia No family history of bleeding disorder Denies family history of Ovarian cancer Prostate cancer Breast cancer Colorectal cancer Social History Smoking Status: Never smoker Second Hand Exposure: No (as a child); Hx Alcohol Use: No Hx Substance Use: No Preferred Language: Chinese Communication Ability: Effective Visual Impairment: No Limitations Hearing Ability: Normal Photo Lab Technician Required: No Beliefs That Will Affect Care: None marital status: Current Living Situation: Spouse current occupational status: retired How many Children do You have: 4 Feels Safe at Home: Yes Childhood Exposure to Second-Hand Smoke: Yes caffeine: Yes Dental Care, Regularly: Yes Physical Activity Frequency: Daily Seatbelt Use: always Sunscreen Use: No Assistive Devices: Denture - Upper Review of Systems Review of Systems: See HPI Physical Exam Physical Exam: Constitutional: well-appearing, no acute distress HEENT: NCAT, no conjunctival injection CV: regular rhythm, no murmur appreciated, extremities well-perfused, no LE edema Resp: CTABL, no wheezes/rales/rhonchi appreciated, no increased work of breathing MSK: no gross deformities appreciated Mental status: alert, oriented x4 Speech: clear, fluent Cranial nerves: II: pupils equal and reactive to light and accommodation, no overt visual palomo deficits III, IV, : EOMI, no gaze preference or deviation V: normal sensation in V1, V2, and V3 segments bilaterally VII: no asymmetry, no nasolabial fold flattening VIII: normal hearing to soft noise bilaterally IX, X: normal palatal elevation, no uvular deviation XI: 5/5 head turn and 5/5 shoulder shrug bilaterally XII: midline tongue protrusion Motor: 5/5 muscle power in R shoulder abductors/adductors, elbow flexors/extensors, wrist flexors/extensors, finger abductors/adductors 5/5 in R hip flexors/extensors, knee flexors/extensors, ankle dorsiflexors and planter flexors 5/5 muscle power in L shoulder abductors/adductors, elbow flexors/extensors, wrist flexors/extensors, finger abductors/adductors 5/5 in L hip flexors/extensors, knee flexors/extensors, ankle dorsiflexors and planter flexors Reflexes: achilles, patellar, biceps, trcepts DTRs 2+ bilaterally; no clonus Sensory: sensation grossly intact in upper and lower extremities bilaterally Coordination: normal [id number], Gait: nonantalgic Results & Data ([facility]) Vital Signs (Past 12 Hours) Vital Signs Temp Pulse Pulse Resp BP BP Pulse Ox 08/10/22 08:00 37.0 C 79 16 136/85 94 08/10/22 07:43 79 08/10/22 02:35 36.9 C 75 18 135/79 94 08/09/22 22:18 66 08/09/22 22:45 36.5 C 71 18 148/81 H 92 O2 Del Method 08/10/22 08:00 Room Air 08/10/22 07:43 08/10/22 02:35 Room Air 08/09/22 22:18 08/09/22 22:45 Room Air Resident Activity Tracking Resident Involvement: Resident Care Provided Care Provided: Adult Hospital Medicine
[2022-08-10] MEDS ORDERED: APIXABAN 5 MG TABLET PO STA (09:50)
--- NOTE | 2022-08-10 11:15 | Discharge Summary ---
Date of Service August 10, 2022 Admission HPI Per Admitting Provider Dilan Wiggins is an 87 yo male with PMH of HTN, prostate cancer, COVID-19 infection in Jul 2022, insomnia, and osteoarthritis who presented to the ED with 3 days of episodic dizziness, confusion, unsteadiness, and subj. loss of peripheral vision. On (08/06), he was eating lunch with his and was standing when he said he suddenly felt lightheaded and "not right" so he had to sit down. He did not note any shortness of breath, chest pain, palpitations, numbness, weakness, or tingling at the time. He sat down and said this feeling went away in about 30 minutes. On (08/07), he drove his son to the [place] and on the way home he stopped at a place that he is very familiar, but said he got confused and couldn't find his way out. He said this lasted about 30 minutes and finally he was able to find his away out and remember where he was. On the evening of (08/08), he was sleeping and got up to go to the bathroom and felt very unsteady and dizzy, saying that he had to hold onto something otherwise he would lose his balance. He also noted discomfort in his head at the time in a band-like distribution. This morning at breakfast, he says he ran into his twice because he said his peripheral vision wasn't very good and he may have had some blurry vision at the time. He says this is new as of the last few days. He also notes that because of this feeling his gait has been different and he takes shorter steps. His recent COVID-19 infection was mild; he did take Molnupiravir and Doxycycline and Codeine cough syrup in addition to his Eszopiclone 2mg nightly for insomnia. He saw his PCP again this morning due to the new confusion and dizziness and she sent him to the ED. ED course: Bolus of 500 mls NSS was given. 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 Admission Exam (Per Admitting) Constitutional Gen-WN/WD, sitting comfortably in no acute distress HEENT- NC/AT, PERRL, oral and pharyngeal mucosa moist Pulm-good breathing effort, no use of accessory muscles, decreased breath sounds bilaterally but no crackles, rales, wheezing CV-normal S1 and S2, no m/r/g, no JVD, no LE edema Abd-normal bowel sounds, soft, non-tender to palpation in all 4 quadrants, no rebound or guarding MSK/Derm- seborrheic dermatoses seen on the upper back, no rashes, bruising, swelling Neuro- Cranial Nerves: II: 20/20 vision. Peripheral vision intact. III/IV/: follows finger with eyes superiorly, laterally, inferiorly. V: sensation normal in the V1,V2, V3 distribution. VII: raises eyebrows, squeezes eyes shut, puffs out cheeks, smile equal bilaterally. VIII: hears whisper bilaterally. IX, X: palate elevation normal, Motor:5/5 strength bilaterally UE and LE Reflexes:+2/4 bilaterally in biceps, triceps, brachioradialis, patellar, Achiles. Negative Babinski. Sensation: sensation to dull and sharp intact bilaterally UE and LE Coordination: Rapidly alternating movement intact. Finger to nose symmetric, no dysmetria, slight action tremor at the end of the movement. Negative Romberg, negative pronator drift. Gait:slow magnetic, gait. short steps, minimal arm movement. Discharge Data Consultations 08/09/22 14:22 ED Decision to Admit Stat 08/09/22 19:22 Consult Neurology Routine Hospital Course (1) CVA (cerebrovascular accident): 87yo male with a history of HTN, prostate cancer, DVT (06/02, now on eliquis), and recent covid infection (Jul 2022) presented to [facility] on 08/09/22 with a three- day history of episodic confusion, lightheadedness, dysequilibrium, and peripheral vision loss, found to be secondary to acute CVA. Acute CVA Patient presents with a three-day history of neurological symptoms including intermittent lightheadedness, disorientation, dysequilibrium, and peripheral vision loss Vitals notable only for mildly elevated BP; labs unremarkable Imaging findings noted in HPI - results concerning for cardioembolic stroke given multiple acute infarcts in both anterior and posterior vascular distributions, though atherosclerotic contribution is not excluded Unclear if provoked vs unprovoked; risk factors include covid infection three weeks ago, DVT in May, and remote history of prostate cancer Echo pending Lipids not elevated; Continue antihypertensive regimen with Continue anticoagulation with eliquis Start on plavix to optimize vessel patency PT/OT evaluation prior to discharge, consider consulting case management for a home safety assessment Hx of DVT Diagnosed with Hypertension
--- NOTE | 2022-08-10 13:23 | Discharge Summary ---
Date of Service August 10, 2022 Admission HPI Per Admitting Provider Dilan Wiggins is an 87 yo male with PMH of HTN, prostate cancer, COVID-19 infection in Jul 2022, insomnia, and osteoarthritis who presented to the ED with 3 days of episodic dizziness, confusion, unsteadiness, and subj. loss of peripheral vision. On (08/06), he was eating lunch with his and was standing when he said he suddenly felt lightheaded and "not right" so he had to sit down. He did not note any shortness of breath, chest pain, palpitations, numbness, weakness, or tingling at the time. He sat down and said this feeling went away in about 30 minutes. On (08/07), he drove his son to the [place] and on the way home he stopped at a place that he is very familiar, but said he got confused and couldn't find his way out. He said this lasted about 30 minutes and finally he was able to find his away out and remember where he was. On the evening of (08/08), he was sleeping and got up to go to the bathroom and felt very unsteady and dizzy, saying that he had to hold onto something otherwise he would lose his balance. He also noted discomfort in his head at the time in a band-like distribution. This morning at breakfast, he says he ran into his twice because he said his peripheral vision wasn't very good and he may have had some blurry vision at the time. He says this is new as of the last few days. He also notes that because of this feeling his gait has been different and he takes shorter steps. His recent COVID-19 infection was mild; he did take Molnupiravir and Doxycycline and Codeine cough syrup in addition to his Eszopiclone 2mg nightly for insomnia. He saw his PCP again this morning due to the new confusion and dizziness and she sent him to the ED. ED course: Bolus of 500 mls NSS was given. 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 Admission Exam Per Admitting Provider Gen-WN/WD, sitting comfortably in no acute distress HEENT- NC/AT, PERRL, oral and pharyngeal mucosa moist Pulm-good breathing effort, no use of accessory muscles, decreased breath sounds bilaterally but no crackles, rales, wheezing CV-normal S1 and S2, no m/r/g, no JVD, no LE edema Abd-normal bowel sounds, soft, non-tender to palpation in all 4 quadrants, no rebound or guarding MSK/Derm- seborrheic dermatoses seen on the upper back, no rashes, bruising, swelling Neuro- Cranial Nerves: II: 20/20 vision. Peripheral vision intact. III/IV/: follows finger with eyes superiorly, laterally, inferiorly. V: sensation normal in the V1,V2, V3 distribution. VII: raises eyebrows, squeezes eyes shut, puffs out cheeks, smile equal bilaterally. VIII: hears whisper bilaterally. IX, X: palate elevation normal, Motor:5/5 strength bilaterally UE and LE Reflexes:+2/4 bilaterally in biceps, triceps, brachioradialis, patellar, Achilles. Negative Babinski. Sensation: sensation to dull and sharp intact bilaterally UE and LE Coordination: Rapidly alternating movement intact. Finger to nose symmetric, no dysmetria, slight action tremor at the end of the movement. Negative Romberg, negative pronator drift. Gait:slow magnetic, gait. short steps, minimal arm movement. Principal Diagnosis Acute stroke Discharge Exam Gen- WN/WD, sitting comfortably in no acute distress HEENT- NC/AT, PERRL, oral and pharyngeal mucosa moist Pulm- good breathing effort, no use of accessory muscles, decreased breath sounds bilaterally but no crackles, rales, wheezing CV- normal S1 and S2, no m/r/g, no LE edema MSK/Derm- seborrheic dermatoses seen on the upper back, no rashes, bruising, sw elling Neuro- Cranial Nerves: II: 20/20 vision. Peripheral vision intact on right, left peripheral vision testing abnormal in left middle field. III/IV/: follows finger with eyes superiorly, laterally, inferiorly. V: sensation normal in the V1,V2, V3 distribution. VII: raises eyebrows, squeezes eyes shut, puffs out cheeks, smile equal bilaterally. VIII: hears whisper bilaterally. IX, X: palate elevation normal, sticks out tongue, equal. Motor: 5/5 strength bilaterally UE and LE Reflexes: +2/4 bilaterally in biceps, triceps, patellar, Achilles. Negative Babinski. Sensation: sensation grossly intact bilaterally UE and LE Coordination: Rapidly alternating movement intact. Finger to nose symmetric, no dysmetria, slight action tremor at the end of the movement. Gait: slow gait. short steps, minimal arm movement. Discharge Data Allergies Allergy/AdvReac Type Severity Reaction Status Date / Time aspirin Allergy Intermediate facial Verified 08/09/22 14:54 swelling hydrocodone AdvReac Intermediate hallucinati Verified 08/09/22 14:54 ons Consultations 08/09/22 14:22 ED Decision to Admit Stat 08/09/22 19:22 Consult Neurology Routine Ordered Studies Cardiac Enzymes 08/09/22 Range/Units 12:50 AST 19 (13-39) U/L Troponin I High Sens 15.9 (0-20) pg/ml Lipids 08/10/22 Range/Units 06:14 Triglycerides 124 (0-150) mg/dl Cholesterol 142 (0-200) mg/dl HDL Cholesterol 36 mg/dl Cholesterol/HDL Ratio 3.9 (0-5) CBC 08/09/22 08/10/22 Range/Units 12:50 06:14 WBC 7.08 6.74 (4.8-10.8) K/ul RBC 5.25 5.11 (4.70-6.10) M/uL Hgb 16.1 15.8 (14.0-18.0) g/dl Hct 48.0 45.8 (42.0-52.0) % Plt Count 208 202 (130-400) K/uL Neut # (Auto) 4.94 4.72 (1.40-6.50) K/uL Lymph # (Auto) 1.15 L 1.16 L (1.2-3.4) K/uL Thomas # (Auto) 0.81 H 0.71 H (0.11-0.59) K/uL Eos # (Auto) 0.12 0.09 (0-0.50) K/uL Baso # (Auto) 0.04 0.04 (0-0.2) K/uL Comprehensive Metabolic Panel 08/09/22 08/10/22 Range/Units 12:50 06:14 Sodium 136 137 (136-145) mmol/L Potassium 4.2 4.2 (3.5-5.1) mmol/L Chloride 104 106 (98-107) mmol/L Carbon Dioxide 26 26 (21-32) mmol/L BUN 15 16 (6-23) mg/dl Creatinine 0.88 0.87 (0.6-1.4) mg/dl Glucose 96 98 (70-99(Fasting)) mg/dl Calcium 9.4 9.4 (8.5-10.1) mg/dl AST 19 (13-39) U/L ALT 22 (7-52) U/L Alkaline Phosphatase 73 (34-104) U/L Total Protein 7.6 (6.0-8.3) gm/dl Albumin 4.3 (3.4-5.0) gm/dl Intake and Output 08/09/22 08/10/22 08/10/22 22:59 06:59 14:59 Intake Total 500 / 500 1000 / 1000 Output Total 0 / 1 1 / 1 Balance 500 / 499 -1 / 499 1000 / 1000 Intake: IV 500 / 500 1000 / 1000 Sodium Chloride 0.9% 1000ML 1, 1000 / 1000 000 ml @ 100 mls/hr IV .Q10H KEMAL Rx#:[id number] Sodium Chloride 0.9% 500 ml @ 500 / 500 999 mls/hr IV .Q31M ONE Rx#: [id number] Output: Urine 0 / 0 Urine/Stool Mix / Other: # Unmeasured Voids 0 2 Weight 89.9 kg 89.9 kg 89.9 kg Weight Measurement Method Standing Scale Standing Scale Patient Weight 08/11/22 06:59 Weight [address] 08/09/22 13:[address] DOSE: 788.63 mGycm HISTORY: vertigo TECHNIQUE: Multiaxial CT images of the head were performed without the use of intravenous contrast. Automated exposure control was utilized for this study. A dose lowering technique was utilized adhering to the principles of ALARA. Comparison: Head CT 01/07/2021. Findings: Partial opacification and fluid levels seen within the frontal sinuses, ethmoid air cells, maxillary sinuses. This has slightly progressed in the interval. The mastoid air cells are clear. The calvarium and skull base are intact. There is no mass, hematoma, midline shift, acute infarct. White matter hypodensity is nonspecific but suggestive of microvascular ischemic change. The ventricles and sulci demonstrate mild age-related involutional changes. A small focus of encephalomalacia within the left occipital lobe consistent with an old infarct. This is new from the prior study. Impression: 1. No acute infarct or intracranial hemorrhage. 2. 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 3. Slight progression of the acute on chronic paranasal sinus disease. ACT 112: Negative or not required by law. Electronically signed by: Daniele Calle M.D. 08/09/2022 1:47 PM Chest X-Ray 08/09/22 13:46 XR chest 1V portable HISTORY: 87 years-old Male cp acute chest pain COMPARISON: 09/24/2021 TECHNIQUE: AP view of the chest FINDINGS: Cardiac silhouette is enlarged. No pneumothorax, large pleural effusion or overt pulmonary edema. Right infrahilar opacity. Mild subsegmental bibasilar atelectas is/scarring. Bilateral shoulder replacements. Degenerative changes of the spine. IMPRESSION: 1. Cardiomegaly without pulmonary edema. 2. Right infrahilar opacity is likely secondary to summation de nsity/atelectasis. ACT 112: Negative or not required by law. The above report was generated using voice recognition software. It may contain grammatical, syntax or spelling errors. Electronically signed by: Nikhil Aguilera M.D. 08/09/2022 2:30 PM Brain MRI 08/09/22 19:22 MRI OF THE BRAIN WITHOUT AND WITH IV CONTRAST CLINICAL HISTORY: dizziness COMPARISON STUDY: Head CT and CTA of the head performed earlier today. TECHNIQUE: Utilizing a 1.5 Nikole magnet and dedicated coil, multiplanar, multiecho imaging of the brain was performed pre and postcontrast administration. IV administration of 8.9 mL of Gadavist contrast was uneventful. FINDINGS: There are multiple acute infarcts within the right occipital lobe. In addition, there is a 1.7 cm acute infarct within the right parietal lobe on axial image 21 of 24. There is mild associated edema on the T2-weighted sequences. There are possible small acute infarcts within the right cerebellar hemisphere on axial image 7 of 24. No mass effect. There is no acute hemorrhage. Ventricular system is unremarkable. Basal cisterns are patent. There are no extra axial collections. Flow-voids for the major intracranial vessels are present. There is no intracranial mass or pathologic enhancement. There is extensive sinus opacification, as shown on prior CT. Calvarial signal is normal. IMPRESSION: Multiple acute infarcts within the right occipital lobe and a 1.7 cm right parietal lobe infarct. Possible small acute infarcts within the right cerebellar hemisphere. No mass effect. No acute hemorrhage. ACT 112: Negative or not required by law. Electronically signed by: Edward Kaplan M.D. 08/09/2022 9:21 PM Head CTA 08/09/22 19:22 CTA ANGIOGRAPHY OF THE HEAD CLINICAL HISTORY: dizziness COMPARISON STUDY: CTA of the head January 07, 2022. TECHNIQUE: Helical axial images of the head were obtained following uneventful intravenous administration of 111 cc of Optiray. Sagittal and coronal reconstructions were viewed as well as maximal intensity projections on an independent 3-D workstation. Automated exposure control was utilized for the study. A dose lowering technique was utilized adhering to the principles of ALARA. CT DOSE: 641.49 mGy.cm FINDINGS: Ventricular system is stable. Basal cisterns are patent. There are no extra axial collections. No acute hemorrhage is identified on this contrast enhanced exam. There is extensive mucosal thickening of the bilateral maxillary and ethmoid sinuses. There is also moderate mucosal thickening of the frontal and left sphenoid sinuses. Bilateral M1, M2, A1 and A2 segments are patent. There is no central vessel occlusion. No intracranial aneurysm is identified. Posterior circulation is also intact. There is minimal plaque within the bilateral cavernous carotids without stenosis. There is mild plaque within the intracranial portion of the right vertebral artery. IMPRESSION: No central vessel occlusion. No intracranial aneurysm. ACT 112: Negative or not required by law. Electronically signed by: Edward Kaplan M.D. 08/09/2022 9:25 PM Neck CTA 08/09/22 19:22 CT ANGIOGRAPHY OF THE NECK WITH CONTRAST CLINICAL HISTORY: dizziness COMPARISON STUDY: CTA of the neck January 07, 2021 Technique: CT angiography of the carotid and vertebral arteries was obtained using Optiray and 3D reconstruction on an independent workstation. NASCET criteria was utilized. Automated exposure control was utilized for the study. A dose lowering technique was utilized adhering to the principles of ALARA. Findings: There is suspected mild to moderate stenosis at the origin the left vertebral artery, suboptimally assessed on this exam. Right vertebral artery is unremarkable. No additional stenoses are present. The bilateral common carotid and cervical internal carotid arteries are patent. There is moderate plaque within the bilateral carotid bifurcations without stenosis. Moderate sinus mucosal thickening is incidentally noted. There is no cervical lymphadenopathy. No acute cervical spine fracture is present. IMPRESSION: 1. 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 No additional stenoses within the bilateral common carotid, cervical internal carotid or vertebral arteries. 2. Moderate plaque within the bilateral carotid bifurcations without stenosis. ACT 112: Negative or not required by law. Electronically signed by: Edward Kaplan M.D. 08/09/2022 8:49 PM Hospital Course (1) CVA (cerebrovascular accident): 87 yo with PMH of HTN, COVID19 infection in Jul, prostate cancer, and insomnia who presented with 3 days of episodic dizziness, confusion, and peripheral vision loss. Acute Stroke -MRI brain showed multiple acute R sided infarcts specifically in the R parietal, R occipital, as well as the cerebellum -Minimally symptomatic: reports peripheral visual deficits but denies other focal neurological symptoms. Reassuring neuro exam. -Considered arterioembolic as the most likely source given the pattern of distribution. Less likely cardioembolic or primary ischemic stroke -Echo did not suggest shunt. CTA head/neck suggests moderate bilateral carotid plaque and mild/moderate L vertebral artery stenosis at the origin -Patient reports full adherence with Eliquis for Hx of recent DVT in R peroneal vein 2 months ago. Repeat U/S Doppler negative for DVT bilaterally. -Will pause Eliquis for one week in setting of multiple stroke to reduce risk of hemorrhagic conversion -Aspirin allergy noted, will start on chronic Plavix -Neuro consulted, recommendations appreciated. Outpatient neuro follow-up. Patient did have peripheral vision loss, follow regarding driving ability. -Started on high-intensity statin. LDL of 81 noted. Recheck lipid panel in 3 months. -CT head also showed small focus of encephalomalacia consistent with old small left occipital lobe infarct, which was not present in 2020 scan -Event monitoring could be considered to check for atrial fibrillation, but patient is already on anticoagulation HTN - Home Metoprolol succinate 25 and Amlodipine were held during admission. Pressures reasonable with 130 systolic. PCP to restart. - Consider MULUGETA workup Hx of DVT - see above. Holding Eliquis, but should restart after 1 week. PCP to assess for total duration of anticoagulation. Post-COVID URI - Patient was taking acute course of doxycycline, discontinued during this admission. Insomnia - Continue home regimen Patient was full code this admission. Total Time Total Time Spent Total Time Spent (In Minutes): see attending documentation Discharge Plan Discharge Items Patient Disposition: Home - Self-Care Reason For Visit: DOC WANTS A CAT SCAN Discharge Diagnosis: acute stroke Activity: Per Instructions section Non-emergency contact: Primary Care Provider and Neurologist Call non-emergency contact if: you have any medication questions, your symptoms worsen and you have a fever Follow-up/Referrals: Reno Monsivais MD [Physician] - (stroke follow-up within 4-6 weeks) Gee Colmenares MD [Primary Care Provider] - 08/16/22 1:30 pm (Appointment with Grace Acosta PA-C) Diet: Heart Healthy Addtl Attending Provider Instructions: You were admitted to the hospital for dizziness. You were found in the hospital to have multiple strokes on brain MRI. Please follow-up with your PCP in 1 week and follow-up with neurology within 6-8 weeks. Please hold all your blood pressure medications which include amlodipine and metoprolol until you see your primary care doctor. Please hold your Eliquis for 1 week and then restart this medication. Start Rosuvastatin 20 mg daily Start Plavix 75 mg daily Recheck lipid panel in 3 months Please contact your PCP or visit the ER if you have any new or worsening symptoms. Pending Studies at Discharge: No Stand-Alone Forms: [facility], Medications to Prevent Stroke Medications and DC Order Prescriptions: New rosuvastatin [Crestor] 20 mg Tablet 20 mg PO HS 30 Days Qty: 30 0RF clopidogrel [Plavix] 75 mg tablet 75 mg PO DAILY Qty: 30 0RF Continued Eliquis 5 mg tablet 5 mg PO BID Qty: 60 2RF amlodipine 10 mg tablet 10 mg PO QAM Qty: 90 3RF metoprolol succinate 25 mg tablet extended release 24 hr 25 mg PO QAM Qty: 90 3RF eszopiclone [Lunesta] 2 mg tablet 2 mg PO HS Qty: 90 3RF cholecalciferol (vitamin D3) [Vitamin D3] 1,000 unit Capsule 1,000 unit PO QAM triamcinolone acetonide 0.1 % cream 1 applic TOP BID PRN (Reason: AFFECTED AREA) Rx Instructions: Apply to areas of the trunk twice daily for up to 2 weeks as needed for flaring. Discharge Orders: Discharge Order (Routine); Ordered 08/10/22 Ordered By: Merrick Cm Admission Data Admit Date/Time: 08/09/22 16:20 Attending Provider: Merrick Cm Admit Provider: Kem Tavarez Primary Care Provider: Gee Colmenares Other Providers: Amrit Dowling ; Reno Monsivais Other Interventions: Discharge Summary Assessment (RN) Last Done: 08/10/22 18:09 Supervising Physician Co-Signing Physician Notes I personally examined the patient and verified all kumar points of history and exam, discussed case, and agree with decision making with Floridalma Sanchez MS4 and Dr Cummings Feeling better. Walking the halls. Would very much like to go home. Notes that he takes his Eliquis twice daily as prescribed. Vitals noted, in general he is awake and alert pleasant no distress. HEENT normocephalic atraumatic mucous membranes moist. Breathing unlabored no accessory muscle use good effort. Skin shows no rashes no pallor or icterus. Neuro as above, no overt focal deficits. Strokes -Distribution across several vessels, but all in the same hemispheric distribution. ---> The showering appearance would plead a central embolic/cardioembolic source, but the fact that he is already on Eliquis and adherent to it makes this much less likely to be the case, given the efficacy of anticoagulants such as Eliquis at protecting against atrial fibrillation/paradoxical embolus type strokes. Given that, and given his known atherosclerotic disease, it is certainly quite plausible that he had a more central atheroembolic mechanismand would benefit from antiplateletagree with neurology in addition of Plavix -Since DVT no longer visible, and we do not have any documented atrial fibril lation, nor did we have evidence of shunting on echocardiogram, will temporarily hold Eliquis to allow time for brain tissue to heal/stabilize (about a week) given that we are also initiating Plavix and rosuvastatin in an 87-year-old man. That said, over the long-term, given that his DVT was apparently unprovoked, as well as the fact that his stroke may have been central embolic/cardioembolicres uming Eliquis in a week, and strongly considering long-term prophylactic dosing of an anticoagulant (such as Eliquis 5 mg daily) certainly makes sense as long as he does not run into any bleeding problems. -We will also set up 30-day event monitor -Safe/stable for home
--- NOTE | 2022-08-10 14:05 | XCELERA ---
[id number]
--- NOTE | 2022-08-10 15:00 | Ultrasound Report ---
BILATERAL LOWER EXTREMITY VENOUS DOPPLER CLINICAL HISTORY: History of DVT, recent stroke COMPARISON STUDY: No previous studies for comparison. TECHNIQUE: Sonography of the deep venous system of the bilateral lower extremities was performed. Co mpression and augmentation were evaluated. FINDINGS: The bilateral common femoral, superficial femoral and popliteal veins were compressible. A ugmentation was normal. Flow was shown within the deep calf vessels. IMPRESSION: No evidence of deep venous thrombus within the bilateral lower extremities. ACT 112: Negative or not required by law. Electronically signed by: Edward Kaplan M.D. 08/10/2022 2:59 PM
[2022-08-10] MEDS ORDERED: STROKE PATIENT DISCHARGE STA ×2 (17:44→18:10)
--- NOTE | 2022-08-10 17:48 | Communication Note ---
Date of Service: August 10, 2022 By CMS guidelines, a determination that the admission or continued stay is not medically necessary has been made by a member of the UR committee and a physic ac for this hospital stay, therefore a Code 44 will be completed and the Inpatient admission will be changed to outpatient.
--- NOTE | 2022-08-10 19:46 | Billing Data ---
Date of Service August 10, 2022 Coding Level of Care Code 45662 IN/OBS DISCH 30 MIN/LESS
--- NOTE | 2022-08-10 21:46 | Communication Note ---
Date of Service: August 10, 2022 By CMS guidelines, a determination that the admission or continued stay is not medically necessary has been made by a member of the UR committee and a phys ician for this hospital stay, therefore a Code 44 will be completed and the Inpatient admission will be changed to outpatient.
== END 2022-08-10 18:29 | disposition home or self-care (01) ==
LOC: ED 12:14 → 2W 16:20 → INTOOBSV 16:20 → 2W 18:09